=== PATIENT | female | born 1930 | race Caucasian/White ===

== ENCOUNTER 2016-07-01 23:00 | Inpatient (IN) | payer OTHER ==
[~2016-07-01] VITALS: Ht 167.6 cm; Wt 70.1 kg
[2016-07-02] VITALS (10 sets, daily range): BP systolic 99–160; BP diastolic 59–78; PULSE 60–66; TEMP 36.5–36.9; O2SAT 94–98; Ht 167.6 cm; Wt 70.1 kg
--- NOTE | 2016-07-02 00:28 | EMERGENCY ROOM VISIT NOTE ---
History Report prepared by Quanibelo: Dao Argueta Under the Supervision of: Dr. Indra Caputo D.O. First contact with patient: 00:21 Chief Complaint: BACK PAIN Stated Complaint: PAIN IN UPPER BACK WITH DEEP BREATHS History of Present Illness The patient is an 86 year old female who presents to the Emergency Room with complaints of persistent back pain since yesterday. The pain is localized to the right upper back, and is worsened when she takes a deep breath. She has not taken anything for pain. She denies fevers, cough, or chest pain. The patient denies any recent back injuries. She does have a history of blood clots s/p surgery many years ago. She is not on any blood thinners currently other than baby aspirin. The patient does not have any known drug allergies. She has a history of arthritis in her back. Source of History: patient Onset: yesterday Position: back (upper) Timing: other (persistent) Modifying Factors (Worsening): breathing Associated Symptoms: No chest pain, No cough, No fevers Review of Systems See HPI for pertinent positives and negatives. A total of ten systems were reviewed and were otherwise negative. Past Medical & Surgical Medical Problems: (1) Arthritis (2) H/O blood clots Family History Blood clots Diabetes mellitus FHx: heart disease Hypertension Social History Smoking Status: Never Smoker Housing Status: lives alone Occupation Status: retired Current/Historical Medications Scheduled Aspirin (Aspirin Ec), 81 MG PO DAILY Calcium Carbonate-Vitamin D W/ (Caltrate 600 Plus), 1 TAB PO DAILY Cholecalciferol (Vitamin D3), 1,000 UNITS PO DAILY Coenzyme Q10 (Ubidecarenone) (Co Q 10), 100 MG PO DAILY Evcwnpuvefh-Ldlcpvtqrzj-Xwx C- (Glucosamine Chondroitin), 1 CAP PO BID Metoprolol Succ (Toprol Xl) (Toprol-Xl), 25 MG PO DAILY Simvastatin (Zocor), 20 MG PO QPM Allergies Coded Allergies: No Known Allergies (Unverified , 08/26/13) Physical Exam Vital Signs Date Time Temp Pulse Resp B/P Pulse Ox O2 Delivery O2 Flow Rate FiO2 07/02/16 03:00 67 14 152/74 91 07/02/16 02:41 173/79 07/02/16 02:30 76 19 07/02/16 02:00 77 19 175/75 07/02/16 01:45 63 17 141/86 97 Room Air 07/02/16 01:45 94 Room Air 07/01/16 23:11 36.6 70 20 180/77 93 Room Air Physical Exam GENERAL: Awake, alert, well-appearing, in no distress HENT: Normocephalic, atraumatic. Oropharynx unremarkable. EYES: Normal conjunctiva. Sclera non-icteric. NECK: Supple. No nuchal rigidity. FROM. No JVD. RESPIRATORY: Clear to auscultation. CARDIAC: Regular rate, normal rhythm. Extremities warm and well perfused. Pulses equal. ABDOMEN: Soft, non-distended. No tenderness to palpation. No rebound or guarding. No masses. RECTAL: Deferred. MUSCULOSKELETAL: Chest examination reveals no tenderness. The back is symmetrical on inspection without obvious abnormality. There is no CVA tenderness to palpation. No joint edema. LOWER EXTREMITIES: Calves are equal size bilaterally and non-tender. No edema. No discoloration. NEURO: Normal sensorium. No sensory or motor deficits noted. SKIN: No rash or jaundice noted. Medical Decision & Procedures ER Provider Diagnostic Interpretation: X ray results as stated below per my interpretation. Other radiology results as stated below per my review and radiologist interpretation Chest One View Portable: Negative for infiltrate. CTA CHEST: There are acute right upper lobar segmental and subsegmental pulmonary emboli. Main pulmonary artery is normal in caliber. There is no evidence of right heart strain. Thoracic aorta is normal in caliber. There is cardiomegaly and coronary atherosclerosis without significant pericardial effusion. There is small sliding type hiatal hernia. There is no adenopathy by size criteria. Enlarged multinodular goiter is noted. There are few juxtapleural opacities in the right upper lobe which may represent small areas of pulmonary infarct. There is left basilar subsegmental atelectasis. There is mild generalized subpleural reticulations and fibrosis. There is no pleural effusion or pneumothorax. Visualized upper abdomen is unremarkable. No acute osseous findings. 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 Radioloigst: Tyshawn Wong MD. Laboratory Results 07/02/16 00:35 Red Blood Count 4.69, Mean Corpuscular Volume 94.0, Mean Corpuscular Hemoglobin 30.9, Mean Corpuscular Hemoglobin Concent 32.9, Mean Platelet Volume 11.4, Neutrophils (%) (Auto) 10.2, Lymphocytes (%) (Auto) 86.1, Monocytes (%) (Auto) 2.6, Eosinophils (%) (Auto) 0.6, Basophils (%) (Auto) 0.2, Neutrophils # (Auto) 5.65, Lymphocytes # (Auto) 47.51, Monocytes # (Auto) 1.45, Eosinophils # (Auto) 0.31, Basophils # (Auto) 0.09 07/02/16 00:35 Test 07/02/16 00:35 White Blood Count 55.16 K/uL (4.8-10.8) Red Blood Count 4.69 M/uL (4.2-5.4) Hemoglobin 14.5 g/dL (12.0-16.0) Hematocrit 44.1 % (37-47) Mean Corpuscular Volume 94.0 fL (80-100) Mean Corpuscular Hemoglobin 30.9 pg (25-34) Mean Corpuscular Hemoglobin Concent 32.9 g/dl (32-36) Platelet Count 159 K/uL (130-400) Mean Platelet Volume 11.4 fL (7.4-10.4) Neutrophils (%) (Auto) 10.2 % Lymphocytes (%) (Auto) 86.1 % Monocytes (%) (Auto) 2.6 % Eosinophils (%) (Auto) 0.6 % Basophils (%) (Auto) 0.2 % Neutrophils # (Auto) 5.65 K/uL (1.4-6.5) Lymphocytes # (Auto) 47.51 K/uL (1.2-3.4) Monocytes # (Auto) 1.45 K/uL (0.11-0.59) Eosinophils # (Auto) 0.31 K/uL (0-0.5) Basophils # (Auto) 0.09 K/uL (0-0.2) RDW Standard Deviation 47.5 fL (36.4-46.3) RDW Coefficient of Variation 14.0 % (11.5-14.5) Immature Granulocyte % (Auto) 0.3 % Immature Granulocyte # (Auto) 0.15 K/uL (0.00-0.02) Smudge Cells PRESENT Prothrombin Time 10.7 SECONDS (9.0-12.0) Prothromb Time International Ratio 1.0 (0.9-1.1) Anion Gap 7.0 mmol/L (3-11) Est Creatinine Clear Calc Drug Dose 39.5 ml/min Estimated GFR () 59.9 Estimated GFR (Non- 51.7 BUN/Creatinine Ratio 22.6 (10-20) Calcium Level 10.0 mg/dl (8.5-10.1) Total Bilirubin 0.5 mg/dl (0.2-1) Direct Bilirubin 0.1 mg/dl (0-0.2) Aspartate Amino Transf (AST/SGOT) 20 U/L (15-37) Alanine Aminotransferase (ALT/SGPT) 23 U/L (12-78) Alkaline Phosphatase 61 U/L (45-117) Total Protein 7.9 gm/dl (6.4-8.2) Albumin 4.2 gm/dl (3.4-5.0) Laboratory results reviewed by me Medications Administered Medications (Trade) Dose Ordered Sig/Lizeth Route Start Time Stop Time Status Last Admin Dose Admin Enoxaparin Sodium (Lovenox Inj) 100 mg STK-MED ONCE .ROUTE 07/02/16 02:32 07/02/16 02:33 DC 07/02/16 02:36 70 MG ECG Indication: back/shoulder pain Rate (beats per minute): 69 Rhythm: normal sinus Findings: RBBB, other (no obvoius ST segment elevation. Normal axis.) ED Course 0022: The patient was evaluated in room A3. A complete history and physical exam was performed. 0215: [facility] 02[facility]: Lovenox 100 mg SQ. 0245: Updated and reevaluated the patient. 0300: The patient will be evaluated by Dr. Tsang, [facility]. Medical Decision Differential diagnosis includes rib sprain, rib fracture, pneumonia, PE. Patient was found to have a pulmonary embolism the right upper lobe on CT. Patient is in no respiratory distress is not tachycardic or hypotensive at this time. I've discussed the evaluation of the patient patient's daughter at bedside at 2:45 AM. Patient will be started on Lovenox and admitted for further treatment pulmonary embolism Consults Time Called: [phone] Consulting Physician: Dr. Tsang, [facility]ist. Returned Call: [phone] The patient will be [facility] Impression Primary Impression: Pulmonary embolism Critical Care I have personally spent greater than 35 minutes of critical care time in the direct management of this patient. This includes bedside care, interpretation of diagnostic studies, and testing, discussion with consultants, patient, and family members, and other required patient management activities. This 35 minutes is in excess of all separately billable procedures. Scribe Attestation The scribe's documentation has been prepared under my direction and personally reviewed by me in its entirety. I confirm that the note above accurately reflects all work, treatment, procedures, and medical decision making performed by me. Departure Information Dispostion Being Evaluated By Hospitalist Referrals Jose Denise M.D. (PCP) Patient Instructions My [facility] Problem Qualifiers Primary Impression: Pulmonary embolism Pulmonary embolism type: other Chronicity: acute Acute cor pulmonale presence: without acute cor pulmonale Qualified Codes: I26.99 - Other pulmonary embolism without acute cor pulmonale
[2016-07-02] MEDS ORDERED: OPTIRAY 320 IV PRN (00:30)
[2016-07-02 01:08] LABS: HEMATOCRIT 44.1 % (37-47); MEAN CORPUSCULAR HEMOGLOBIN 30.9 pg (25-34); MEAN CORPUSCULAR HGB CONC 32.9 g/dl (32-36); MEAN PLATELET VOLUME 11.4 fL (7.4-10.4); PLATELET COUNT 159 K/uL (130-400); RED BLOOD COUNT 4.69 M/uL (4.2-5.4); WHITE BLOOD COUNT 55.16 K/uL (4.8-10.8)
[2016-07-02 01:13] LABS: BUN/CREATININE RATIO 22.6 (10-20)
[2016-07-02 01:25] LABS: BASO % 0.2 %; BASO ABS # 0.09 K/uL (0-0.2); COMPLETE YES; EOS % 0.6 %; IG% 0.3 %; LYMPH % 86.1 %; LYMPH ABS # 47.51 K/uL (1.2-3.4); MONO % 2.6 %; NEUT % 10.2 %; SMUDGE CELLS PRESENT
[2016-07-02] MEDS ORDERED: ENOXAPARIN 1 MG/KG SQ SCH ×2 (02:30→07:15)
[2016-07-02] MEDS ORDERED: ENOXAPARIN 100 MG/1ML SYR ONE (02:32)
[2016-07-02] MEDS ORDERED: GLUC1CAP35 PO (02:36)
[2016-07-02] MEDS ORDERED: ASPI81TA28 PO (02:37)
[2016-07-02] MEDS ORDERED: SIMV20TA2 PO (02:38)
[2016-07-02] MEDS ORDERED: CHOL1CAP57 PO (02:39)
[2016-07-02] MEDS ORDERED: METO25TA3 PO (02:40)
[2016-07-02] MEDS ORDERED: COEN1CAP17 PO (02:41)
[2016-07-02] MEDS ORDERED: CALCTAB7 PO (02:42)
[2016-07-02 03:03] LABS: PROTHROMBIN TIME (PATIENT) 10.7 SECONDS (9.0-12.0)
--- NOTE | 2016-07-02 05:56 | History and Physical ---
History & Physical Date & Time of Service: Jul 02, 2016 at 05:55 Chief Complaint: Pain In Upper Back With Deep Breaths Primary Care Physician: Jose Denise M.D. History of Present Illness Source: patient 86 y/o F Hx CLL, HTN, HPL, DVT/PE - presents with pleuritic R upper back pain x 2 days. She denies fevers, CP, palpitations or a productive cough. A CTA was obtained in the ER revealing R upper lobe pulmonary emboli. She has not exhibited hypoxia or tachycardia. 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 Family History Blood clots Diabetes mellitus FHx: heart disease Hypertension Several family members with DVT Social History Lives with family - maintains independence Smoking Status: Never Smoker Occupational Status: retired Allergies Coded Allergies: No Known Allergies (Unverified , 08/26/13) Home Medications Scheduled Aspirin (Aspirin Ec), 81 MG PO DAILY Calcium Carbonate-Vitamin D W/ (Caltrate 600 Plus), 1 TAB PO DAILY Cholecalciferol (Vitamin D3), 1,000 UNITS PO DAILY Coenzyme Q10 (Ubidecarenone) (Co Q 10), 100 MG PO DAILY Gxiklsrdxqk-Werlzfnnjur-Lex C- (Glucosamine Chondroitin), 1 CAP PO BID Metoprolol Succ (Toprol Xl) (Toprol-Xl), 25 MG PO DAILY Simvastatin (Zocor), 20 MG PO QPM Review of Systems Constitutional: No chills, No fever, No sweats Eyes: No worsening of vision ENT: No hearing loss, No nasal symptoms, No unusual epistaxis Respiratory: + problem reported (PLeuritic R upper back pain), No cough, No dyspnea at rest, No dyspnea on exertion, No shortness of breath, No sputum, No wheezing Cardiovascular: No PND, No chest pain, No orthopnea Abdomen: No nausea, No pain, No vomiting Musculoskeletal: No joint pain Genitourinary - Female: No dysuria, No urinary frequency, No urinary urgency Neurologic: No memory loss, No paralysis, No weakness Psychiatric: No depression symptoms Endocrine: No fatigue Hematologic / Lymphatic: No abnormal bleeding/bruising Integumentary: No rash Allergic / Immunologic: No environmental allergies Physical Exam Vital Signs Date Time Temp Pulse Resp B/P Pulse Ox O2 Delivery O2 Flow Rate FiO2 07/02/16 04:30 63 13 140/61 92 07/02/16 04:00 66 14 140/70 91 07/02/16 03:30 67 13 145/74 87 07/02/16 03:00 67 14 152/74 91 07/02/16 02:41 173/79 07/02/16 02:30 76 19 07/02/16 02:00 77 19 175/75 07/02/16 01:45 63 17 141/86 97 Room Air 07/02/16 01:45 94 Room Air 07/01/16 23:11 36.6 70 20 180/77 93 Room Air General Appearance: WD/WN, no apparent distress, + pertinent finding (Very pleasant elderly F - AAO x 3 - no distress) Head: normocephalic, atraumatic Eyes: normal inspection, EOMI ENT: normal ENT inspection, pharynx normal Neck: supple, no JVD Respiratory/Chest: chest non-tender, lungs clear, no accessory muscle use Cardiovascular: regular rate, rhythm, no edema, no gallop, no JVD, no murmur, normal peripheral pulses Abdomen/GI: normal bowel sounds, non tender, soft Back: normal inspection, no CVA tenderness, no muscle spasm, normal range of motion Extremities/Musculoskelatal: normal inspection, no calf tenderness, normal capillary refill, no pedal edema, normal range of motion Neurologic/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, no motor/sensory deficits, alert, normal mood/affect, normal reflexes, oriented x 3 Skin: normal color, warm/dry, no rash Diagnostics Laboratory Results Results Past 24 Hours Test 07/02/16 00:35 Range/Units White Blood Count 55.16 4.8-10.8 K/uL Red Blood Count 4.69 4.2-5.4 M/uL Hemoglobin 14.5 12.0-16.0 g/dL Hematocrit 44.1 37-47 % Mean Corpuscular Volume 94.0 80-100 fL Mean Corpuscular Hemoglobin 30.9 25-34 pg Mean Corpuscular Hemoglobin Concent 32.9 32-36 g/dl Platelet Count 159 130-400 K/uL Mean Platelet Volume 11.4 7.4-10.4 fL Neutrophils (%) (Auto) 10.2 % Lymphocytes (%) (Auto) 86.1 % Monocytes (%) (Auto) 2.6 % Eosinophils (%) (Auto) 0.6 % Basophils (%) (Auto) 0.2 % Neutrophils # (Auto) 5.65 1.4-6.5 K/uL Lymphocytes # (Auto) 47.51 1.2-3.4 K/uL Monocytes # (Auto) 1.45 0.11-0.59 K/uL Eosinophils # (Auto) 0.31 0-0.5 K/uL Basophils # (Auto) 0.09 0-0.2 K/uL RDW Standard Deviation 47.5 36.4-46.3 fL RDW Coefficient of Variation 14.0 11.5-14.5 % Immature Granulocyte % (Auto) 0.3 % Immature Granulocyte # (Auto) 0.15 0.00-0.02 K/uL Smudge Cells PRESENT Prothrombin Time 10.7 9.0-12.0 SECONDS Prothromb Time International Ratio 1.0 0.9-1.1 Sodium Level 144 136-145 mmol/L Potassium Level 4.0 3.5-5.1 mmol/L Chloride Level 104 98-107 mmol/L Carbon Dioxide Level 33 21-32 mmol/L Anion Gap 7.0 3-11 mmol/L Blood Urea Nitrogen 23 7-18 mg/dl Creatinine 1.00 0.60-1.20 mg/dl Est Creatinine Clear Calc Drug Dose 39.5 ml/min Estimated GFR () 59.9 Estimated GFR (Non- 51.7 BUN/Creatinine Ratio 22.6 10-20 Random Glucose 113 70-99 mg/dl Calcium Level 10.0 8.5-10.1 mg/dl Total Bilirubin 0.5 0.2-1 mg/dl Direct Bilirubin 0.1 0-0.2 mg/dl Aspartate Amino Transf (AST/SGOT) 20 15-37 U/L Alanine Aminotransferase (ALT/SGPT) 23 12-78 U/L Alkaline Phosphatase 61 45-117 U/L Total Protein 7.9 6.4-8.2 gm/dl Albumin 4.2 3.4-5.0 gm/dl Diagnostic Radiology CTA: There are acute right upper lobar segmental and subsegmental pulmonary emboli. Main pulmonary artery is normal in caliber. There is no evidence of right heart strain. Impression Assessment and Plan 86 y/o F Hx CLL, HTN, HPL, DVTs - presents with pleuritic R upper back pain. She denies fevers, CP, palpitations or a productive cough. A CTA was obtained in the ER revealing R upper lobe pulmonary emboli. 1) PE - the pt is not hypoxic or tachycardic. She does not have evidence of R heart strain. She is likely susceptible to emboli due to her underlying CA. She has been placed on Lovenox and may be a candidate for treatment with an oral anticoagulant if this can be arranged prior to Monday. 2) CLL - WBC is slightly above baseline possibly due to stress - F/U in outpt setting. 3) HTN - cont Metoprolol 4) HPL - cont Zocor Full code - full dose Lovenox Total time for this admit including review of labs, meds, records, EKG, imaging - discussion with Pt and ER attending - 38 min Level of Care Telemetry Resuscitation Status FULL RESUSCITATION VTE Prophylaxis Given or contraindicated: Enoxaparin (Lovenox)SQ
[2016-07-02] MEDS ORDERED: ALUMINUM/MAGNESIUM/SIMETH (MAALOX MAX) 30 ML UDC PO PRN (06:00)
[2016-07-02] MEDS ORDERED: ACETAMINOPHEN 325 MG TAB PO PRN (06:00)
[2016-07-02] MEDS ORDERED: ONDANSETRON INJ 2 MG/ML 2 ML VIAL IV PRN (06:00)
[2016-07-02] MEDS ORDERED: MAGNESIUM HYDROXIDE SUSP 30 ML UDC PO PRN (06:00)
[2016-07-02] MEDS ORDERED: POLYETHYLENE (MIRALAX) 17 GM PACK PO PRN (06:00)
--- NOTE | 2016-07-02 07:38 | DIAGNOSTIC IMAGING REPORT ---
CHEST CTA for PULMONARY ARTERIES CT DOSE: 208.76 mGy.cm HISTORY: Short of breath. TECHNIQUE: Multiaxial CT images of the chest were performed following the intravenous administration of contrast to evaluate the pulmonary arteries. Maximal intensity projection images were also obtained. COMPARISON STUDY: None. FINDINGS: Multinodular thyroid goiter. No evidence for an aortic dissection. The heart is mildly enlarged. No pleural or pericardial effusions. No mediastinal or hilar lymphadenopathy. The visualized liver and spleen are unremarkable. Small hiatus hernia. Right upper lobe pulmonary emboli. No fractures within the visualized osseous structures. Benign appearing sclerotic lesion within the left humeral head. No pneumothorax. The central airways are patent. Mild interstitial thickening at the lung bases. A few small peripheral groundglass densities within the right lung apex. These favor small pulmonary infarcts. IMPRESSION: 1. Right upper lobe pulmonary emboli with a few small right apical pulmonary infarcts. 2. Multinodular goiter. 3. The heart is mildly enlarged. 4. Small hiatus hernia. 5. Multinodular thyroid goiter. Electronically signed by: Geovanni Ojeda M.D. 07/02/2016 7:37 AM Dictated Date/Time: 07/02/2016 7:33 AM
--- NOTE | 2016-07-02 08:45 | DIAGNOSTIC IMAGING REPORT ---
CHEST ONE VIEW PORTABLE HISTORY: Atypical CHEST PAIN COMPARISON: None. FINDINGS: Slight prominence of interstitial markings which is likely chronic. The heart is mildly enlarged. Low lung volumes. No pleural effusions. No pneumothorax. Sclerotic density within the proximal left humerus favors a benign cartilaginous lesion. IMPRESSION: Low lung volumes with mild chronic interstitial thickening and mild cardiomegaly. Electronically signed by: Geovanni Ojeda M.D. 07/02/2016 8:43 AM Dictated Date/Time: 07/02/2016 8:43 AM
[2016-07-02] MEDS: METOPROLOL SUCC 25MG EXT REL TAB PO SCH (08:51)
[2016-07-02] MEDS: CHOLECALCIFEROL 1000 INTER.UNIT TAB PO SCH (08:51)
[2016-07-02] MEDS: CALCIUM 600MG + VIT D 400 IU TAB PO SCH (08:51)
[2016-07-02] MEDS: ASPIRIN 81 MG ECTAB PO SCH (08:51)
--- NOTE | 2016-07-02 16:13 | Progress Note ---
Subjective Date of Service: Jul 02, 2016. Subjective Pt evaluation today including: conversation w/ patient, conversation w/ family , physical exam, chart review, lab review, review of studies, review of inpatient medication list He denied to chair, pleasant, no complaint Problem List Medical Problems: (1) Pulmonary embolism Status: Acute Review of Systems Constitutional: No chills, No fatigue, No fever, No problem reported, No sweats , No weakness, No weight loss Eyes: No diplopia, No discharge, No eye pain, No redness, No worsening of vision ENT: No dental problems, No hearing loss, No nasal symptoms, No sore throat, No tinnitus, No trouble swallowing, No unusual epistaxis Respiratory: No cough, No dyspnea at rest, No dyspnea on exertion, No hemoptysis, No shortness of breath, No sputum, No wheezing Cardiac: No PND, No chest pain, No claudication, No edema, No orthopnea, No palpitations Abdomen: No constipation, No diarrhea, No nausea, No pain, No vomiting Musculoskeletal: No calf pain, No joint pain, No muscle pain, No swelling Female : No abnormal vaginal bleeding, No dysuria, No hematuria, No incontinence, No urinary frequency, No vaginal discharge Neurologic: No balance problems, No memory loss, No numbness/tingling, No paralysis, No vertigo, No weakness Psychiatric: No anhedonism, No anxiety, No depression symptoms, No insomnia, No substance abuse Heme: No abnormal bleeding/bruising, No clotting problems, No night sweats, No swollen lymph nodes Endo: No excessive thirst, No excessive urination, No fatigue Skin: No bleeding, No color change, No itch, No new/changing skin lesions, No rash Objective Vital Signs Date Time Temp Pulse Resp B/P Pulse Ox O2 Delivery O2 Flow Rate FiO2 07/02/16 12:00 94 Room Air 07/02/16 11:22 36.5 63 16 155/60 98 Room Air 07/02/16 08:00 94 Room Air 07/02/16 07:46 36.7 61 16 148/72 94 Room Air 07/02/16 06:45 36.9 65 18 160/67 95 Room Air 07/02/16 06:21 63 18 156/70 95 07/02/16 04:30 63 13 140/61 92 07/02/16 04:00 66 14 140/70 91 07/02/16 03:30 67 13 145/74 87 07/02/16 03:00 67 14 152/74 91 07/02/16 02:41 173/79 07/02/16 02:30 76 19 07/02/16 02:00 77 19 175/75 07/02/16 01:45 63 17 141/86 97 Room Air 07/02/16 01:45 94 Room Air 07/01/16 23:11 36.6 70 20 180/77 93 Room Air Physical Exam General Appearance: WD/WN, no apparent distress Eyes: normal inspection, PERRL, EOMI, sclerae normal ENT: normal ENT inspection, hearing grossly normal, pharynx normal Neck: supple, no adenopathy, thyroid normal, no JVD, no carotid bruits, trachea midline Respiratory/Chest: chest non-tender, lungs clear, normal breath sounds, no respiratory distress, no accessory muscle use, + decreased breath sounds Cardiovascular: regular rate, rhythm, no edema, no gallop, no JVD, no murmur Abdomen: normal bowel sounds, non tender, soft, no organomegaly, no pulsatile mass Extremities: normal range of motion, non-tender, normal inspection, no pedal edema, no calf tenderness, normal capillary refill, pelvis stable Neurologic/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, no motor/sensory deficits, alert, normal mood/affect, oriented x 3 Skin: normal color, warm/dry, no rash Lymphatic: no adenopathy Laboratory Results Last 24 Hours Test 07/02/16 00:35 White Blood Count 55.16 K/uL Red Blood Count 4.69 M/uL Hemoglobin 14.5 g/dL Hematocrit 44.1 % Mean Corpuscular Volume 94.0 fL Mean Corpuscular Hemoglobin 30.9 pg Mean Corpuscular Hemoglobin Concent 32.9 g/dl Platelet Count 159 K/uL Mean Platelet Volume 11.4 fL Neutrophils (%) (Auto) 10.2 % Lymphocytes (%) (Auto) 86.1 % Monocytes (%) (Auto) 2.6 % Eosinophils (%) (Auto) 0.6 % Basophils (%) (Auto) 0.2 % Neutrophils # (Auto) 5.65 K/uL Lymphocytes # (Auto) 47.51 K/uL Monocytes # (Auto) 1.45 K/uL Eosinophils # (Auto) 0.31 K/uL Basophils # (Auto) 0.09 K/uL RDW Standard Deviation 47.5 fL RDW Coefficient of Variation 14.0 % Immature Granulocyte % (Auto) 0.3 % Immature Granulocyte # (Auto) 0.15 K/uL Smudge Cells PRESENT Prothrombin Time 10.7 SECONDS Prothromb Time International Ratio 1.0 Sodium Level 144 mmol/L Potassium Level 4.0 mmol/L Chloride Level 104 mmol/L Carbon Dioxide Level 33 mmol/L Anion Gap 7.0 mmol/L Blood Urea Nitrogen 23 mg/dl Creatinine 1.00 mg/dl Est Creatinine Clear Calc Drug Dose 39.5 ml/min Estimated GFR () 59.9 Estimated GFR (Non- 51.7 BUN/Creatinine Ratio 22.6 Random Glucose 113 mg/dl Calcium Level 10.0 mg/dl Total Bilirubin 0.5 mg/dl Direct Bilirubin 0.1 mg/dl Aspartate Amino Transf (AST/SGOT) 20 U/L Alanine Aminotransferase (ALT/SGPT) 23 U/L Alkaline Phosphatase 61 U/L Total Protein 7.9 gm/dl Albumin 4.2 gm/dl Assessment and Plan 86 y/o F Hx CLL, HTN, HPL, DVTs admitted because of with pleuritic R upper back pain is found has acute PE. A CTA was obtained in the ER revealing R upper lobe pulmonary emboli. Acute PE likely susceptible to emboli due to her underlying CA. Continue on Lovenox and may be a candidate for treatment with an oral anticoagulant if this can be arranged prior to Monday. Will consult deicer inspector electric because patient have underlined leukemia and 1 to find on the best options of anticoagulation hx of CLL - WBC is slightly above baseline possibly due to stress - F/U in outpt setting. HTN - cont Metoprolol HPL - cont Zocor Full code - full dose Lovenox Discussed with patient and family about care plan answer all questions
[2016-07-02] MEDS: ENOXAPARIN 80 MG/0.8 ML SYR SQ SCH (16:25)
[2016-07-02] MEDS: SIMVASTATIN 20 MG TAB PO SCH (21:28)
[2016-07-03] VITALS (12 sets, daily range): BP systolic 110–151; BP diastolic 62–74; PULSE 59–74; TEMP 36.5–37; O2SAT 93–98
[2016-07-03] MEDS: ENOXAPARIN 80 MG/0.8 ML SYR SQ SCH ×2 (06:12→17:37)
[2016-07-03] MEDS: METOPROLOL SUCC 25MG EXT REL TAB PO SCH (09:39)
[2016-07-03] MEDS: ASPIRIN 81 MG ECTAB PO SCH (09:40)
[2016-07-03] MEDS: CALCIUM 600MG + VIT D 400 IU TAB PO SCH (09:41)
[2016-07-03] MEDS: CHOLECALCIFEROL 1000 INTER.UNIT TAB PO SCH (09:41)
--- NOTE | 2016-07-03 11:10 | Hospitalist Progress Note ---
Hospitalist Progress Note Date of Service Jul 03, 2016. Subjective Pt evaluation today including: conversation w/ patient, physical exam, chart review, lab review, review of studies, review of inpatient medication list Patient seen and evaluated. No acute events overnight. Patient is currently on therapeutic Lovenox. Awaiting afternoon babysitter recommendations with hopeful conversion for oral anticoagulation. Follows with Dr. Ivy as her oncologist. 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 She states that she did have clotting issues approximately 10 years ago but cannot recall is utilizing anticoagulation. Additional Comments: REVIEW OF SYSTEMS: General/Constitutional: Denies fever/chills, fatigue, weakness ENT: Denies visual changes, nasal drainage, hearing loss, sore throat, trouble swallowing Cardiovascular: Denies chest pain, palpitations, edema Respiratory: +intermittent coughl Denies sputum, SOB, wheezing, orthopnea GI: Denies nausea, vomiting, abdominal pain, constipation, diarrhea, melena/ hematochezia : Denies dysuria, frequency, hematuria Musculoskeletal: Denies joint/muscle aches, weakness, swelling Neurologic: Denies dizziness/lightheadedness, numbness/tingling, weakness Psychiatric: Deferred Endocrine: Deferred Hematologic/Lymphatic: H/O previous blood clot after surgery Skin: Denies rash, itch, new skin changes, easy bruising Allergy/Immunologic: Deferred Medications Current Inpatient Medications Medications (Trade) Dose Ordered Sig/Lizeth Route Start Time Stop Time Status Last Admin Dose Admin Ioversol (Optiray 320) 125 ml UD PRN IV 07/02/16 00:30 07/06/16 00:29 Aspirin (Ecotrin Tab) 81 mg DAILY PO 07/02/16 09:00 08/01/16 08:59 07/03/16 09:40 81 MG Calcium/Vitamin D (Caltrate Plus Tab) 1 tab DAILY PO 07/02/16 09:00 08/01/16 08:59 07/03/16 09:41 1 TAB Metoprolol Succinate (Toprol Xl Tab) 25 mg DAILY PO 07/02/16 09:00 08/01/16 08:59 07/03/16 09:39 25 MG Simvastatin (Zocor Tab) 20 mg QPM PO 07/02/16 21:00 08/01/16 20:59 07/02/16 21:28 20 MG Cholecalciferol (Vitamin D Tab) 1,000 inter.unit DAILY PO 07/02/16 09:00 08/01/16 08:59 07/03/16 09:41 1,000 INTER.UNIT Acetaminophen (Tylenol Tab) 650 mg Q4H PRN PO 07/02/16 06:00 08/01/16 05:59 Al Hydrox/Mg Hydrox/Simethicone (Maalox Max Susp) 15 ml Q4H PRN PO 07/02/16 06:00 08/01/16 05:59 Magnesium Hydroxide (Milk Of Magnesia Susp) 30 ml Q12H PRN PO 07/02/16 06:00 08/01/16 05:59 Ondansetron HCl (Zofran Inj) 4 mg Q6H PRN IV 07/02/16 06:00 08/01/16 05:59 Polyethylene (Miralax Powder Packet) 17 gm DAILY PRN PO 07/02/16 06:00 08/01/16 05:59 Enoxaparin Sodium (Lovenox Inj) 70 mg Q12@0600,1800 SQ 07/02/16 16:00 08/01/16 15:59 07/03/16 06:12 70 MG Objective Vital Signs Date Time Temp Pulse Resp B/P Pulse Ox O2 Delivery O2 Flow Rate FiO2 07/03/16 07:37 36.8 65 16 110/68 98 Room Air 07/03/16 04:00 96 Room Air 07/03/16 03:59 36.6 74 18 151/74 96 Room Air 07/03/16 00:01 97 Room Air 07/02/16 23:16 36.7 66 18 99/59 97 Room Air 07/02/16 20:00 97 Room Air 07/02/16 20:00 97 Room Air 07/02/16 18:59 36.8 60 18 121/71 96 Room Air 07/02/16 16:00 94 Room Air 07/02/16 15:06 36.5 63 18 140/78 94 Room Air 07/02/16 12:00 94 Room Air 07/02/16 11:22 36.5 63 16 155/60 98 Room Air Physical Exam Notes: PHYSICAL EXAM:: General Appearance: WDWN in NAD who is A&O x 3 HEENT: Head is normocephalic/atraumatic; EOMI; PERRLA; Hearing grossly intact; Mucous membranes moist; Pharynx negative for exudate/lesions Neck: Supple; Trachea midline; Neg JVD; Neg lymphadenopathy Heart: RRR with no M/G/R Lungs: CTA in all lung ponce bilaterally; Respirations unlabored; Neg accessory muscle use Abdomen: Soft, non-tender, non-distended; Positive BS x 4 quadrants; Neg organomegaly Extremities: Capillary refill < 2 seconds; Neg cyanosis or edema Neurological: Speech clear; Gross motor/sensory function intact; Neg focal neurologic deficits Psychiatric: Appropriate mood/affect Skin: Normal Color; Warm/Dry; Neg rashes, ecchymosis, lacerations/ulcerations Assessment and Plan 86 y/o F Hx CLL, HTN, HPL, DVTs admitted because of with pleuritic R upper back pain is found has acute PE - R Upper Lobe PE Acute Pulmonary Embolism - Likely 2/2 CLL: - Lovenox 70 mg SC daily - Venous U/S B/L lower extremity - R/O existing DVT - Follows with Dr. Ivy in [place] for CLL without active treatment - Consult hematology - appreciate recommendations -- Patient would like oral anticoagulant - patient independent and denies frequent falls - consideration for NOAC? HTN: - Metoprolol Succ 25 mg daily HDL: - Simvastatin 20 mg daily DVT Prophylaxis: Therapeutic Lovenox Code Status: FULL RESUSCITATION Disposition: D/C with anticoagulation - if NOAC will need insurance checked to see affordability -- If injection - HHS Continued [facility] stay due to: other (Anticoagulation as Outpatient) Discharge planning: home
--- NOTE | 2016-07-03 11:55 | Oncology Consultation ---
Oncology/Heme Consultation Date of Consultation: Jul 03, 2016. Attending Physician: Narendra Le MD, PhD Reason for Consultation: CLL Pulmonary embolism History of Present Illness Ms. 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 She is asymptomatic and managed with expectant observation. She presented yesterday with chest pain and was found to have a RUL PE. She is currently on Lovenox 1 mg/kg BID and would prefer an oral option. I was consulted to weigh in on this issue. She feels well and denies fevers, chills, night sweats, adenopathy, hemoptysis, fatigue, or anorexia. Past Medical/Surgical History Medical Problems: (1) Pulmonary embolism Status: Acute Family History Blood clots Diabetes mellitus FHx: heart disease Hypertension Social History Smoking Status: Never Smoker Housing Status: lives alone Occupation Status: retired Allergies Coded Allergies: No Known Allergies (Unverified , 08/26/13) Home Medications Scheduled Aspirin (Aspirin Ec), 81 MG PO DAILY Calcium Carbonate-Vitamin D W/ (Caltrate 600 Plus), 1 TAB PO DAILY Cholecalciferol (Vitamin D3), 1,000 UNITS PO DAILY Coenzyme Q10 (Ubidecarenone) (Co Q 10), 100 MG PO DAILY Ugrzqwrrbor-Bopddhihjyw-Fen C- (Glucosamine Chondroitin), 1 CAP PO BID Metoprolol Succ (Toprol Xl) (Toprol-Xl), 25 MG PO DAILY Simvastatin (Zocor), 20 MG PO QPM Current Inpatient Medications Current Inpatient Medications Medications (Trade) Dose Ordered Sig/Lizeth Route Start Time Stop Time Status Last Admin Dose Admin Ioversol (Optiray 320) 125 ml UD PRN IV 07/02/16 00:30 07/06/16 00:29 Aspirin (Ecotrin Tab) 81 mg DAILY PO 07/02/16 09:00 08/01/16 08:59 07/03/16 09:40 81 MG Calcium/Vitamin D (Caltrate Plus Tab) 1 tab DAILY PO 07/02/16 09:00 08/01/16 08:59 07/03/16 09:41 1 TAB Metoprolol Succinate (Toprol Xl Tab) 25 mg DAILY PO 07/02/16 09:00 08/01/16 08:59 07/03/16 09:39 25 MG Simvastatin (Zocor Tab) 20 mg QPM PO 07/02/16 21:00 08/01/16 20:59 07/02/16 21:28 20 MG Cholecalciferol (Vitamin D Tab) 1,000 inter.unit DAILY PO 07/02/16 09:00 08/01/16 08:59 07/03/16 09:41 1,000 INTER.UNIT Acetaminophen (Tylenol Tab) 650 mg Q4H PRN PO 07/02/16 06:00 08/01/16 05:59 Al Hydrox/Mg Hydrox/Simethicone (Maalox Max Susp) 15 ml Q4H PRN PO 07/02/16 06:00 08/01/16 05:59 Magnesium Hydroxide (Milk Of Magnesia Susp) 30 ml Q12H PRN PO 07/02/16 06:00 08/01/16 05:59 Ondansetron HCl (Zofran Inj) 4 mg Q6H PRN IV 07/02/16 06:00 08/01/16 05:59 Polyethylene (Miralax Powder Packet) 17 gm DAILY PRN PO 07/02/16 06:00 08/01/16 05:59 Enoxaparin Sodium (Lovenox Inj) 70 mg Q12@0600,1800 SQ 07/02/16 16:00 08/01/16 15:59 07/03/16 06:12 70 MG Review of Systems Constitutional: No chills, No fatigue, No fever ENT: No unusual epistaxis Respiratory: No cough, No hemoptysis Cardiovascular: + chest pain, No edema Abdomen: No GI bleeding, No pain Musculoskeletal: No joint pain, No muscle pain Hematologic / Lymphatic: No abnormal bleeding/bruising, No night sweats, No swollen lymph nodes Physical Exam Date Time Temp Pulse Resp B/P Pulse Ox O2 Delivery O2 Flow Rate FiO2 07/03/16 11:29 36.5 65 16 120/64 93 Room Air 07/03/16 07:37 36.8 65 16 110/68 98 Room Air 07/03/16 04:00 96 Room Air 07/03/16 03:59 36.6 74 18 151/74 96 Room Air 07/03/16 00:01 97 Room Air 07/02/16 23:16 36.7 66 18 99/59 97 Room Air 07/02/16 20:00 97 Room Air 07/02/16 20:00 97 Room Air 07/02/16 18:59 36.8 60 18 121/71 96 Room Air 07/02/16 16:00 94 Room Air 07/02/16 15:06 36.5 63 18 140/78 94 Room Air 07/02/16 12:00 94 Room Air General Appearance: WD/WN, no apparent distress Respiratory/Chest: lungs clear, no respiratory distress Cardiovascular: regular rate, rhythm, no murmur Abdomen/GI: non tender, soft Extremities/Musculoskelatal: no pedal edema, non-tender Neurologic/Psych: alert, oriented x 3 Skin: no rash Lymphatic: no adenopathy Assessment & Plan Ms. Varma is an 86 year old woman with Shook stage 0 CLL. She presents with an acute RUL PE. She is currently being managed with Lovenox, but would like to consider an oral agent instead. We have evidence that, in patients with active malignancy, Lovenox is superior to Coumadin in preventing recurrent VTE. A number of studies have demonstrated that, in a variety of other contexts, the DOACs (Rivaroxiban or Apixiban) are superior to Coumadin as well. However, the DOACs are poorly studied in cancer patients. Systematic reviews of smaller studies comparing DOACs to Coumadin show that they are likely of comparable efficacy, but the individual studies are small and the level of evidence is poor. In addition, no study to date has compared DOACs to Lovenox, which we know is superior to Coumadin in this setting. As a result, I would recommend Lovenox, provided she can tolerate it. If she tries it and cannot use it for whatever reason, she could discuss options for oral anticoagulants with her Accounting Manager Cpa in [place]. Given that this is her second VTE and was provoked by an irreversible risk factor (her CLL), I would advocate indefinite anticoagulation (i.e. until she has a compelling contraindication to AC). She should follow with her primary Accounting Manager Cpa shortly after discharge, to make sure he is aware of this turn of events.
[2016-07-03] MEDS ORDERED: NURSING VERBAL MED ORDER ONE (13:45)
[2016-07-03] MEDS ORDERED: LOVENOX TEACHING KIT SCH (14:15)
[2016-07-03] MEDS: SIMVASTATIN 20 MG TAB PO SCH (21:01)
--- NOTE | 2016-07-03 21:03 | DIAGNOSTIC IMAGING REPORT ---
BILATERAL LOWER EXTREMITY VENOUS DOPPLER CLINICAL HISTORY: Pulmonary emboli. COMPARISON STUDY: No previous studies for comparison. TECHNIQUE: Sonography of the deep venous system of the bilateral lower extremities was performed. Compression and augmentation were evaluated. FINDINGS: The bilateral common femoral, superficial femoral and popliteal veins were compressible. Augmentation was normal. Flow was shown within the deep calf vessels. IMPRESSION: No evidence of deep venous thrombus within the bilateral lower extremities. Electronically signed by: Parker Cano M.D. 07/03/2016 9:01 PM Dictated Date/Time: 07/03/2016 9:01 PM
[2016-07-04] VITALS (7 sets, daily range): BP systolic 113–148; BP diastolic 72–75; PULSE 56–72; TEMP 36.4–37.1; O2SAT 98
[2016-07-04] MEDS: ENOXAPARIN 80 MG/0.8 ML SYR SQ SCH (05:53)
[2016-07-04 06:01] LABS: HEMATOCRIT 40.2 % (37-47); MEAN CELL VOLUME 92.8 fL (80-100); MEAN CORPUSCULAR HEMOGLOBIN 30.3 pg (25-34); MEAN CORPUSCULAR HGB CONC 32.6 g/dl (32-36); MEAN PLATELET VOLUME 11.1 fL (7.4-10.4); PLATELET COUNT 138 K/uL (130-400); RED BLOOD COUNT 4.33 M/uL (4.2-5.4); WHITE BLOOD COUNT 39.77 K/uL (4.8-10.8)
[2016-07-04 06:32] LABS: BUN/CREATININE RATIO 24.8 (10-20); CALCIUM 9.3 mg/dl (8.5-10.1); CREATININE 0.9 mg/dl (0.60-1.20); MAGNESIUM 2.6 mg/dl (1.8-2.4); POTASSIUM 4.5 mmol/L (3.5-5.1)
[2016-07-04] MEDS: ASPIRIN 81 MG ECTAB PO SCH (08:04)
[2016-07-04] MEDS: CHOLECALCIFEROL 1000 INTER.UNIT TAB PO SCH (08:04)
[2016-07-04] MEDS: CALCIUM 600MG + VIT D 400 IU TAB PO SCH (08:04)
[2016-07-04] MEDS: METOPROLOL SUCC 25MG EXT REL TAB PO SCH (08:04)
--- NOTE | 2016-07-04 10:45 | Hematology/Oncology Prog Note ---
Hematology/Onc Progress Note Date of Service July 04, 2016. Diagnoses PE history of CLL Medications Medications Administered Medications (Trade) Dose Ordered Sig/Lizeth Route Start Time Stop Time Status Last Admin Dose Admin Enoxaparin Sodium (Lovenox Inj) 100 mg STK-MED ONCE .ROUTE 07/02/16 02:32 07/02/16 02:33 DC 07/02/16 02:36 70 MG Aspirin (Ecotrin Tab) 81 mg DAILY PO 07/02/16 09:00 08/01/16 08:59 07/04/16 08:04 81 MG Calcium/Vitamin D (Caltrate Plus Tab) 1 tab DAILY PO 07/02/16 09:00 08/01/16 08:59 07/04/16 08:04 1 TAB Metoprolol Succinate (Toprol Xl Tab) 25 mg DAILY PO 07/02/16 09:00 08/01/16 08:59 07/04/16 08:04 25 MG Simvastatin (Zocor Tab) 20 mg QPM PO 07/02/16 21:00 08/01/16 20:59 07/03/16 21:01 20 MG Cholecalciferol (Vitamin D Tab) 1,000 inter.unit DAILY PO 07/02/16 09:00 08/01/16 08:59 07/04/16 08:04 1,000 INTER.UNIT Enoxaparin Sodium (Lovenox Inj) 70 mg Q12@0600,1800 SQ 07/02/16 16:00 08/01/16 15:59 07/04/16 05:53 70 MG Miscellaneous (Lovenox Teaching Kit) 1 ea 1415 N/A 07/03/16 14:15 07/03/16 14:16 DC 07/03/16 14:15 1 EA Subjective She seems to be doing well. He really has no new complaints. Denies pain or shortness of breath Review of Systems: Constitutional: Negative for night sweats, or fever Eyes: Negative for event change of vision ENT: Negative for epistaxis, nasal discharge, sore throat, or deafness Cardiovascular: Negative for chest pain, palpitations, dizziness, diaphoresis Respiratory: Negative for new shortness of breath,hemoptysis, or purulent cough Gastrointestinal: Negative for diarrhea, hematemesis, melena, nausea, vomiting , or dyspepsia Integumentary (skin): Negative for rash or jaundice discoloration Genitourinary: Negative for urinary frequency, hematuria, or dysuria Neurological: Negative for weakness, seizure activity, headache, or dizziness Lymphatic/Hematologic: Negative for petechiae, bleeding or new adenopathy Musculoskeletal: Negative for new joint or back pain Allergic/Immunologic: Negative for unusual rash or pruritis. Vital Signs Vital Signs Past 12 Hours Date Time Temp Pulse Resp B/P Pulse Ox O2 Delivery O2 Flow Rate FiO2 07/04/16 08:05 72 07/04/16 08:00 Room Air 07/04/16 07:21 36.5 57 20 148/73 98 Room Air 07/04/16 04:00 98 Room Air 07/04/16 03:55 36.4 56 16 148/75 98 Room Air 07/04/16 00:01 98 Room Air 07/03/16 23:19 36.6 59 18 122/62 98 Room Air Physical Exam Constitutional: vitals are stable. Eyes: Eyes are MAVERICK EOMI without conjuctival erythema or icterus. ENT: External examination was negative for masses. Neck: Negative for masses or palpable thyromegaly Respiratory: Lung sounds were generally clear bilaterally Cardiovascular: Heart was RRR without significant murmur, gallops aoe rubs Gastrointestinal: No palpable hepatic or splenomegaly. The abdomen was soft with normal bowel sounds. Musculoskeletal System: The musculoskeletal system seemed concordant with age. Skin: The skin was negative for jaundice. Neurologic exam: The exam was negative for any focal findings. Deep tendon reflexes were equal and symmetrical. Psychiatric exam: Was essentially negative with normal mood and effect. Breast exam: Not done Extremities: Negative for edema Laboratory Last 24 Hours Test 07/04/16 05:40 White Blood Count 39.77 K/uL Red Blood Count 4.33 M/uL Hemoglobin 13.1 g/dL Hematocrit 40.2 % Mean Corpuscular Volume 92.8 fL Mean Corpuscular Hemoglobin 30.3 pg Mean Corpuscular Hemoglobin Concent 32.6 g/dl RDW Standard Deviation 47.1 fL RDW Coefficient of Variation 13.8 % Platelet Count 138 K/uL Mean Platelet Volume 11.1 fL Sodium Level 145 mmol/L Potassium Level 4.5 mmol/L Chloride Level 108 mmol/L Carbon Dioxide Level 32 mmol/L Anion Gap 5.0 mmol/L Blood Urea Nitrogen 22 mg/dl Creatinine 0.90 mg/dl Est Creatinine Clear Calc Drug Dose 43.5 ml/min Estimated GFR () 68.1 Estimated GFR (Non- 58.7 BUN/Creatinine Ratio 24.8 Random Glucose 90 mg/dl Calcium Level 9.3 mg/dl Magnesium Level 2.6 mg/dl Assessment & Plan CLL stable. She seems to be doing well on Lovenox. 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 Ivy in [place]. We will sign off for now. Please reconsult if necessary.
[2016-07-04] MEDS ORDERED: LVNIS80 SQ (11:11)
--- NOTE | 2016-07-04 11:22 | Discharge Instructions ---
Discharge Instructions Date of Service July 04, 2016. Admission Reason for Admission: Pulmonary Embolism Discharge Discharge Diagnosis / Problem: (1) Pulmonary embolism VTE Date & Time Date of VTE Diagnosis: Jul 02, 2016 Time of VTE Diagnosis: 00:27 Discharge Goals Goal(s): Decrease discomfort, Improve function, Increase independence Activity Recommendations Activity Limitations: as noted below Lifting Limitations: gradually increase as tolerated Exercise/Sports Limitations: gradually increase as tolerated Shower/Bathe: no limitations . Instructions / Follow-Up Instructions / Follow-Up Acute Pulmonary Embolism (Blood Clot in Lung) - You will be continued on Lovenox 100 mg subcutaneously (injected in the fat tissue on the belly) only ONCE DAILY -- This is different then the dose we used at the hospital - this way you only need to do one injection in a day and still gives you the amount of medicine you need - Monitor the injection sites for redness, pain, drainage, warmth which can be signs of infection - Follow-Up with Dr. Ivy - case management is awaiting call back for appointment. They will call you at home when an appointment is established -- We will defer continuing anticoagulation to Dr. Ivy as he is more familiar with your case and can monitor - Follow-Up with your family doctor in 7-10 days as well. Medication Instructions: Your condition is typically treated with an anticoagulant. Anticoagulants will thin your blood to help prevent new clots. * You should take her medication exactly as directed. * Never skip a dose. * Never take a double dose. If you miss a dose, take it as soon as you remember. Call your Primary Care doctor if you experience any of the following: * Swelling or Pain in your leg * Sudden, continuous pain deep in a muscle * Pain that worsens when you are active or when you stand still for a long time * Chest Pain * Sudden Shortness of Breath * Rapid or pounding heart beat * Fainting * Dizziness * Cough with blood or bloody sputum * Sweating more than normal * Bruises * Heavy or uncontrolled bleeding * Blood in your urine, stool or vomit * Black or tarry stools Caring for Your Self at Home: * Avoid sitting, standing or lying down for long periods without moving your legs and feet * When traveling by car, stop to get out and move around at least once every 3 hours * On long airplane, train or bus rides, get up and move around when possible * If you can't get up, wiggle your toes and tighten your calves to keep your blood moving Current Hospital Diet Patient's current hospital diet: AHA Diet (Heart Healthy) Discharge Diet Recommended Diet: AHA Diet (Heart Healthy) Pending Studies Studies pending at discharge: no Medical Emergencies . Who to Call and When: Medical Emergencies: If at any time you feel your situation is an emergency, please call 911 immediately. . Non-Emergent Contact Non-Emergency issues call your: Primary Care Provider Call Non-Emergent contact if: you have a fever, your pain is concerning you, you have any medication questions . . "Provider Documentation" section prepared by Ariadna Johnson. . VTE Core Measure Inpt VTE Proph given/why not?: Enoxaparin (Lovenox)SQ
[2016-07-04] MEDS ORDERED: ENOX100I SC (11:32)
--- NOTE | 2016-07-04 14:05 | Discharge Summary ---
Discharge Summary Date of Service July 04, 2016. Discharge Summary Admission Date: Jul 02, 2016 at 06:00 Discharge Date: July 04, 2016 Discharge Disposition: Home Principal Diagnosis: Pulmonary Embolism Problems/Secondary Diagnoses: 1. CLL 2. HDL 3. DVT (10 years ago) Procedures: 1. CHEST CTA for PULMONARY ARTERIES FINDINGS: Multinodular thyroid goiter. No evidence for an aortic dissection. The heart is mildly enlarged. No pleural or pericardial effusions. No mediastinal or hilar lymphadenopathy. The visualized liver and spleen are unremarkable. Small hiatus hernia. Right upper lobe pulmonary emboli. No fractures within the visualized osseous structures. Benign appearing sclerotic lesion within the left humeral head. No pneumothorax. The central airways are patent. Mild interstitial thickening at the lung bases. A few small peripheral groundglass densities within the right lung apex. These favor small pulmonary infarcts. IMPRESSION: 1. Right upper lobe pulmonary emboli with a few small right apical pulmonary infarcts. 2. Multinodular goiter. 3. The heart is mildly enlarged. 4. Small hiatus hernia. 5. Multinodular thyroid goiter. 2. BILATERAL LOWER EXTREMITY VENOUS DOPPLER FINDINGS: The bilateral common femoral, superficial femoral and popliteal veins were compressible. Augmentation was normal. Flow was shown within the deep calf vessels. IMPRESSION: No evidence of deep venous thrombus within the bilateral lower extremities. Consultations: 1. Hematology/Oncology Medication Reconciliation New Medications: Enoxaparin (Lovenox) 100 Mg/Ml Inj 100 MG SC DAILY for 30 Days Continued Medications: Aspirin (Aspirin Ec) 81 Mg Tab 81 MG PO DAILY Calcium Carbonate-Vitamin D W/ (Caltrate 600 Plus) 1 Tab Tab 1 TAB PO DAILY, TAB Cholecalciferol (Vitamin D3) 1,000 Unit Cap 1000 UNITS PO DAILY Coenzyme Q10 (Ubidecarenone) (Co Q 10) 100 Mg Cap 100 MG PO DAILY Iyqxgvcnuvv-Nhxrbrsbcns-Ggs C- (Glucosamine Chondroitin) 1 Cap Cap 1 CAP PO BID Metoprolol Succ (Toprol Xl) (Toprol-Xl) 25 Mg Tabcr 25 MG PO DAILY, TAB Simvastatin (Zocor) 20 Mg Tab 20 MG PO QPM, TAB Discharge Exam REVIEW OF SYSTEMS: General/Constitutional: Denies fever/chills, fatigue, weakness ENT: Denies visual changes, nasal drainage, hearing loss, sore throat, trouble swallowing Cardiovascular: Denies chest pain, palpitations, edema Respiratory: Denies cough, sputum, SOB, wheezing, orthopnea GI: Denies nausea, vomiting, abdominal pain, constipation, diarrhea, melena/ hematochezia : Denies dysuria, frequency, hematuria Musculoskeletal: +chronic back pain/ankle pain (unchanged from baseline - OA); Denies weakness, swelling Neurologic: Denies dizziness/lightheadedness, numbness/tingling, weakness Psychiatric: Deferred Endocrine: Deferred Hematologic/Lymphatic: H/O previous DVT after surgery Skin: Denies rash, itch, new skin changes, easy bruising Allergy/Immunologic: Deferred PHYSICAL EXAM:: General Appearance: WDWN in NAD who is A&O x 3 HEENT: Head is normocephalic/atraumatic; EOMI; PERRLA; Hearing grossly intact; Mucous membranes moist; Pharynx negative for exudate/lesions Neck: Supple; Trachea midline; Neg JVD; Neg lymphadenopathy Heart: RRR with no M/G/R Lungs: CTA in all lung ponce bilaterally; Respirations unlabored; Neg accessory muscle use Abdomen: Soft, non-tender, non-distended; Positive BS x 4 quadrants; Neg organomegaly Extremities: Capillary refill < 2 seconds; Neg cyanosis or edema Neurological: Speech clear; Gross motor/sensory function intact; Neg focal neurologic deficits Psychiatric: Appropriate mood/affect Skin: Normal Color; Warm/Dry; Neg rashes, ecchymosis, lacerations/ulcerations Hospital Course ADMISSION: 86 y/o F Hx CLL, HTN, HPL, DVT/PE - presents with pleuritic R upper back pain x 2 days. She denies fevers, CP, palpitations or a productive cough. A CTA was obtained in the ER revealing R upper lobe pulmonary emboli. She has not exhibited hypoxia or tachycardia. HOSPITAL COURSE: Ms. Varma was admitted for an acute pulmonary embolism likely precipitated by underlyiing CLL. During admission, she remained hemodynamically stable and without hypoxia. Venous U/S of the bilateral lower extremities without evidence of DVT. She was initiated on Lovenox 1 mg/kg BID. Consultation placed to hematology for recommendations of outpatient treatment. Per hematology recommendations, Lovenox is superior coverage with minimal research supporting use of NOACs in cancer patients. Patient with like to convert to an oral agent. The option of Coumadin was discussed however would have needed Lovenox bridging regardless. Prescription ran through insurance with affordable co-pay. Due to chronic visual issues and simplicity she was discharged home on Lovenox 100 mg SC daily. Appointment made with Dr. Ivy her oncologist for continued follow-up in regards to anticoagulation in setting of CLL. Patient with like recommendations for possible conversion to oral agents. She was instructed on proper technique for injection and performed self injection prior to discharge. Patient was continued on all home medications to include a daily aspirin. Patient is stable and without new complaints and is optimal for discharge home. Total Time Spent: Greater than 30 minutes This includes examination of the patient, discharge planning, medication reconciliation, and communication with other providers. Discharge Instructions Please refer to the electronic Patient Visit Report (Discharge Instructions) for additional information. Additional Copies To Yann Ivy M.D.; JOSE TOURE; Jose Toure M.D.
== END 2016-07-04 13:34 | disposition home or self-care (01) | DRG 176 ==
LOC: ENRESERVTM → ENRESERVDT → CANRESERV → C.EDB 23:02 → C.2T 07-02 06:00
PROVIDERS: ADMIT Internal Medicine; ATTEND Internal Medicine
DX: I26.99 Other pulmonary embolism without acute cor pulmonale (principal); C91.10 Chronic lymphocytic leukemia of B-cell type not having achieved remission; I10 Essential (primary) hypertension; E78.5 Hyperlipidemia, unspecified; M19.90 Unspecified osteoarthritis, unspecified site; M54.9 Dorsalgia, unspecified; Z79.82 Long term (current) use of aspirin; Z79.899 Other long term (current) drug therapy; Z86.718 Personal history of other venous thrombosis and embolism; Z82.49 Family history of ischemic heart disease and other diseases of the circulatory system

== ENCOUNTER → 2016-07-08 | Outpatient (CLI) | payer OTHER ==
[~2016-07-08] MED LIST: ASPI81TA28 PO; CALCTAB7 PO; CHOL1CAP57 PO; COEN1CAP17 PO; ENOX100I SC; GLUC1CAP35 PO; METO25TA3 PO; SIMV20TA2 PO
[2016-07-08 13:57] LABS: MEAN CELL VOLUME 95.2 fL (80-100); MEAN CORPUSCULAR HEMOGLOBIN 30.2 pg (25-34); MEAN CORPUSCULAR HGB CONC 31.7 g/dl (32-36); PLATELET COUNT 169 K/uL (130-400); RED BLOOD COUNT 4.41 M/uL (4.2-5.4); WHITE BLOOD COUNT 50.85 K/uL (4.8-10.8)
[2016-07-08 14:27] LABS: BASO % 0.1 %; BASO ABS # 0.06 K/uL (0-0.2); COMPLETE YES; EOS % 0.6 %; IG% 0.1 %; LYMPH % 89.9 %; MONO % 2.2 %; NEUT % 7.1 %; SMUDGE CELLS PRESENT
== END | disposition home or self-care (01) ==
LOC: C.LABMFLN 09:28
PROVIDERS: ATTEND Family Medicine
DX: I26.99 Other pulmonary embolism without acute cor pulmonale (principal)

== ENCOUNTER → 2016-08-19 | Outpatient (CLI) | payer OTHER ==
[2016-08-19 14:13] LABS: THYROID STIMULATING HORMONE 0.653 uIu/ml (0.300-4.500)
[2016-08-19 14:15] LABS: HEMATOCRIT 42.1 % (37-47); MEAN CORPUSCULAR HEMOGLOBIN 30.4 pg (25-34); MEAN CORPUSCULAR HGB CONC 32.3 g/dl (32-36); MEAN PLATELET VOLUME 12.1 fL (7.4-10.4); PLATELET COUNT 164 K/uL (130-400); RED BLOOD COUNT 4.48 M/uL (4.2-5.4); WHITE BLOOD COUNT 49.94 K/uL (4.8-10.8)
[2016-08-19 14:54] LABS: BASO % 0.2 %; BASO ABS # 0.08 K/uL (0-0.2); COMPLETE YES; EOS % 0.5 %; IG% 0.1 %; LYMPH % 91.8 %; LYMPH ABS # 45.85 K/uL (1.2-3.4); MONO % 0.1 %; NEUT % 7.3 %; SMUDGE CELLS PRESENT
== END | disposition home or self-care (01) ==
LOC: C.LABMFLN 09:56
PROVIDERS: ATTEND Family Medicine
DX: R41.3 Other amnesia (principal)

== ENCOUNTER → 2016-08-30 | Outpatient (CLI) | payer OTHER | END | disposition home or self-care (01) | LOC: C.LABMFLN 09:30 | PROVIDERS: ATTEND Family Medicine | DX: M79.1 Myalgia (principal) ==

== ENCOUNTER → 2017-04-29 | Outpatient (CLI) | payer OTHER ==
[2017-05-11 14:35] LABS: FECAL OCCULT BLOOD #1 NEGATIVE (NEGATIVE); FECAL OCCULT BLOOD #2 NEGATIVE (NEGATIVE); FECAL OCCULT BLOOD #3 NEGATIVE (NEGATIVE)
--- NOTE | 2017-06-23 08:44 | CODING QUERY NO DIAGNOSIS ---
TREATMENT RENDERED WITHOUT A DIAGNOSIS To promote full compliance with coding requirements relating to patient care, physician participation is requested in all cases of wwe wrestler uncertainty. Please assist us with providing a diagnosis/symptom for the test(s) below: A diagnosis/symptom was not documented on your Order. A valid diagnosis/symptom is required to bill all insurances. Please remember that we are unable to code a diagnosis of rule out, probable, possible, questionable, or suspected. Tests that require a diagnosis: DOS: 04/29/17 * FECAL OCCULT BLOOD PANEL DIAGNOSIS: Provider Signature: Date: Thank you Zeinab Lewis [employer] Once completed, please kindly fax back to [phone] For questions please call [phone]
== END | disposition home or self-care (01) ==
LOC: C.LABSPEC 13:12
PROVIDERS: ATTEND Family Medicine
DX: D64.9 Anemia, unspecified (principal)

== ENCOUNTER → 2017-05-11 | Outpatient (CLI) | payer OTHER ==
[2017-05-11 13:19] LABS: HEMATOCRIT 41.5 % (37-47); HEMOGLOBIN 13.5 g/dL (12.0-16.0); MEAN CELL VOLUME 93.7 fL (80-100); MEAN CORPUSCULAR HEMOGLOBIN 30.5 pg (25-34); MEAN CORPUSCULAR HGB CONC 32.5 g/dl (32-36); MEAN PLATELET VOLUME 12.2 fL (7.4-10.4); PLATELET COUNT 139 K/uL (130-400); RED CELL DISTRIBUTION WIDTH CV 13.9 % (11.5-14.5); RED CELL DISTRIBUTION WIDTH SD 47.9 fL (36.4-46.3); WHITE BLOOD COUNT 35.42 K/uL (4.8-10.8)
[2017-05-11 14:14] LABS: BASO % 0.1 %; BASO ABS # 0.04 K/uL (0-0.2); EOS % 0.4 %; EOS ABS # 0.13 K/uL (0-0.5); IG# 0.04 K/uL (0.00-0.02); LYMPH % 88.1 %; LYMPH ABS # 31.19 K/uL (1.2-3.4); MONO % 2.5 %; MONO ABS # 0.89 K/uL (0.11-0.59); NEUT % 8.8 %; NEUT ABS # 3.13 K/uL (1.4-6.5)
== END | disposition home or self-care (01) ==
LOC: C.LABMFLN 09:21
PROVIDERS: ATTEND Family Medicine
DX: E78.00 Pure hypercholesterolemia, unspecified (principal); G31.84 Mild cognitive impairment of uncertain or unknown etiology

== ENCOUNTER 2020-08-29 13:29 | Inpatient (IN) ==
--- NOTE | 2020-08-29 13:52 | Emergency Department Note ---
History of Present Illness General Chief complaint: Arm Pain Time Seen by Provider: 08/29/20 13:44 Source: patient Mode of arrival: EMS Limitations: no limitations History of Present Illness Provider complaint: Right arm pain Maximum Pain Intensity: 8 This 89-year-old female presents today by BLS ambulance, after falling today after lunch. She was using her walker and carrying a dish to the kitchen. She fell in the hallway. She thinks it was a mechanical fall. She denies any chest pain, shortness of breath, or dizziness at the time of the fall. Left hand dominant. She complains of right shoulder pain. Her daughter states that the arm looked misshapen right after the fall. Patient states that it hurts to move the arm. She denies any wrist or elbow pain. No numbness or tingling. She does have a history of previous rotator cuff injury to the shoulder, but no other additional issues. She fell last year and was thought to have a possible clavicle fracture, but it was evaluated and no fracture was identified. No other treatment. No other complaints. She has a history of progressive dementia, and her daughter states that she frequently forgets the walker and ambulates without it. Patient is coherent at this time. Home Medications Medication Instructions Recorded Confirmed Type calcium carbonate 500 mg (1,250 1 tab PO DAILY #90 tab 12/04/18 08/29/20 Rx mg)-vitamin D3 200 unit tablet wheeled walker w handbrakes and #1 ea 04/20/20 08/25/20 Rx seat acetaminophen 325 mg tablet 650 mg PO QID PRN #90 tab 06/03/20 08/29/20 Rx lovastatin 20 mg tablet 20 mg PO QPM #90 tab 06/03/20 08/29/20 Rx sulfamethoxazole 800 1 tab PO BID 5 Days #10 tab 08/28/20 08/29/20 Rx mg-trimethoprim 160 mg tablet cholecalciferol (vitamin D3) 2,000 units PO QAM 08/29/20 08/29/20 History escitalopram oxalate 10 mg PO HS 08/29/20 08/29/20 History metoprolol succinate 12.5 mg PO HS 08/29/20 08/29/20 History mirabegron 50 mg PO HS 08/29/20 08/29/20 History multivitamin 1 tab PO QAM 08/29/20 08/29/20 History nystatin 1 applic TOPICAL BID PRN 08/29/20 08/29/20 History rivaroxaban [Xarelto] 20 mg PO DAILY 08/29/20 08/29/20 History Allergies Allergy/AdvReac Type Severity Reaction Status Date / Time No Known Allergies Allergy Verified 08/29/20 14:23 Past Med/Surg History Medical History Adjustment disorder with depressed mood Benign essential hypertension Chronic low back pain Clavicle fracture CLL (chronic lymphocytic leukemia) CLL (chronic lymphocytic leukemia) Depression Falling Generalized osteoarthritis H/O blood clots Hallucination Hip osteoarthritis Hypercholesterolemia Incontinence of urine Insomnia Lung nodule < 6cm on CT Mild cognitive impairment Multiple thyroid nodules Neurologic gait dysfunction OAB (overactive bladder) Recurrent pulmonary embolism Subdural hematoma Urge incontinence of urine Urinary frequency Vitamin D deficiency Surgical History H/O hysterectomy for benign disease H/O left hemicolectomy History of hysterectomy S/P cataract extraction and insertion of intraocular lens Family History Mother Diabetes Brother Myocardial infarction Denies family history of Ovarian cancer Prostate cancer Breast cancer Colorectal cancer Social History Smoking Status: Never smoker Second Hand Exposure: No; Hx Alcohol Use: No Hx Substance Use: No Preferred Language: German Communication Ability: Effective Visual Impairment: Limited Hearing Ability: Hard of Hearing Golf Manager Required: No Beliefs That Will Affect Care: Cultural Cultural Beliefs: Mennonite marital status: / Current Living Situation: Family Current Living Situation Comment: With daughter current occupational status: retired Feels Safe at Home: Yes Childhood Exposure to Second-Hand Smoke: No Seatbelt Use: always Sunscreen Use: No Assistive Devices: Denture - Upper and Glasses Review of Systems A total of 10 systems reviewed and were otherwise negative Physical Exam Vital Signs Vital Signs - 24 hr 08/29/20 13:40 08/29/20 13:41 Temperature 36.8 C Temperature Source Oral Oral Pulse Rate 77 Respiratory Rate 16 Respiratory Effort / Characteristics Non-Labored Respiratory Depth Normal Respiratory Pattern Regular Blood Pressure 156/88 H Blood Pressure Mean 110 Blood Pressure Position Sitting Pulse Oximetry 95 Oxygen Delivery Method Room Air Sepsis Recent Fever Within 48 Hours No Sepsis New/Unexplained Change in Mental Status No Sepsis Action Taken by Nursing No Action Required General: Well-developed, elderly white female, in no acute distress. Laying on the bed. Denies any pain as long as I do not move her arm. Conversive. Alert and mildly confused. Aware she is in the ED. Skin: Warm and dry with fair turgor. No rashes. Minor excoriations on her face. No ecchymosis or erythema. The patient is not diaphoretic. No abrasions. HEENT: Normocephalic atraumatic. Eyes PERRLA, EOMI. No conjunctiva or scleral injection. Nares patent bilaterally without turbinate enlargement. No significant drainage. No epistaxis. Oropharynx without erythema or exudate. Uvula midline, oral mucosa moist. No lesions present. Heart: Heart RRR. No MGR. Peripheral pulses are 2+. Lungs: Lungs are clear to auscultation. No crackles rhonchi or wheezing. Good air movement. The patient is able to take a deep breath. Abdomen: Abdomen was inspected, auscultated, and palpated. Obese. Bowel sounds present x 4. Soft, nontender to palpation. No hepato-splenomegaly. No masses noted. Musculoskeletal: Patient has no discomfort with palpation over her cervical or thoracic spine. She has no discomfort with palpation over the left arm. There is some mild discomfort with palpation around her right elbow. Her worst pain is at the proximal humerus. She has very limited motion secondary to pain. There is crepitus palpable with gentle internal and external rotation of the shoulder. Extremes of motion were not attempted. Full range of motion of her wrist and digits. Lower extremity evaluation reveals no obvious asymmetry. She is able to lift her legs. No discomfort with logrolling of the hips or flexion of the knees. Neurologic: Gross sensation is intact across the upper and lower extremities by soft touch. Course Administered Medications Acetaminophen (Acetaminophen 500 Mg Tab) 1,000 mg PO Q8 [facility] Stop: 09/28/20 21:59 Last Admin: 08/30/20 05:19 Dose: 1,000 mg Documented by: [id number] Admin: 08/29/20 21:15 Dose: 1,000 mg Documented by: [id number] Diphenhydramine HCl (Diphenhydramine Capsule 25 Mg Cap) 25 mg PO [facility] Stop: 09/28/20 20:59 Last Admin: 08/29/20 21:15 Dose: 25 mg Documented by: [id number] Escitalopram Oxalate (Escitalopram Oxalate 10 Mg Tab) 10 mg PO HS [facility] Stop: 09/28/20 20:59 Last Admin: 08/29/20 21:15 Dose: 10 mg Documented by: [id number] Sodium Chloride (Nss 1000ml) 1,000 mls @ 100 mls/hr IV .Q10H [facility] Stop: 09/29/20 05:44 Last Admin: 08/30/20 05:48 Dose: 100 mls/hr Documented by: [id number] Lovastatin (Lovastatin 20 Mg Tab) 20 mg PO QPM [facility] Stop: 09/28/20 20:59 Last Admin: 08/29/20 21:15 Dose: 20 mg Documented by: [id number] Metoprolol Succinate (Metoprolol Succ 25mg Ext Rel Tab) 12.5 mg PO [facility] Stop: 09/28/20 20:59 Last Admin: 08/29/20 21:15 Dose: 12.5 mg Documented by: [id number] Mirabegron (Mirabegron Er 25 Mg Tab) 50 mg PO [facility] Stop: 09/28/20 20:59 Last Admin: 08/29/20 21:15 Dose: 50 mg Documented by: [id number] Rivaroxaban (Rivaroxaban 15 Mg Tab) 15 mg PO QDD [facility] Stop: 09/29/20 02:14 Last Admin: 08/30/20 03:08 Dose: 15 mg Documented by: [id number] Trimethoprim/Sulfamethoxazole (Sulfamethoxazole/Trimethoprim Ds 800/160mg Tab) 1 tab PO DAILY [facility] Stop: 09/02/20 08:59 Last Admin: 08/30/20 07:56 Dose: 1 tab Documented by: [id number] Medical Decision Making Differential Diagnosis Mechanical fall, dizziness, humeral fracture, rotator cuff injury, shoulder Medical Records Attestation: I reviewed the patient's medical records. Home Medications Current Medication List: was personally reviewed by me Laboratory Data Attestation: I reviewed the patient's lab results. CBC, chemistry panel, and Covid test were obtained today. Patient's excessive white count at 50.3 is consistent with her baseline due to CLL. Mild anemia. Potassium is elevated at 5.2. Chloride mildly elevated at 109. BUN of 29 and creatinine of 1.14. LFTs are unremarkable. Covid is negative. Result diagrams: 08/30/20 05:57 08/30/20 05:57 Lab Results 08/29/20 08/29/20 08/29/20 Range/Units 17:01 17:01 17:40 WBC 50.32 H* (4.8-10.8) K/uL RBC 3.89 L (4.2-5.4) M/uL Hgb 11.8 L (12.0-16.0) g/dL Hct 36.1 L (37-47) % MCV 92.8 (80-100) fL MCH 30.3 (25-34) pg MCHC 32.7 (32-36) g/dL RDW Std Deviation 46.1 (36.4-46.3) fL RDW Coeff of Сергей 13.7 (11.5-14.5) % Plt Count 131 (130-400) K/uL MPV 11.0 H (7.4-10.4) fL Immature Gran % (Auto) 0.5 % Neut % (Auto) 20.7 % Lymph % (Auto) 75.8 % [place] % (Auto) 2.8 % Eos % (Auto) 0.1 % Baso % (Auto) 0.1 % Neut # (Auto) 10.45 H (1.4-6.5) K/uL Lymph # (Auto) 38.13 H (1.2-3.4) K/uL [place] # (Auto) 1.43 H (0.11-0.59) K/uL Eos # (Auto) 0.03 (0-0.5) K/uL Baso # (Auto) 0.05 (0-0.2) K/uL Immature Gran # (Auto) 0.23 H (0.00-0.02) K/uL Smudge Cells Present Sodium 140 (136-145) mmol/L Potassium 5.2 H (3.5-5.1) mmol/L Chloride 109 H (98-107) mmol/L Carbon Dioxide 25 (21-32) mmol/L Anion Gap 6.0 (3-11) BUN 29 H (7-18) mg/dl Creatinine 1.14 (0.6-1.2) mg/dl Est Cr Clr Drug Dosing 28.2 ml/min Est GFR ( Amer) 49.7 ml/min Est GFR (Non-Af Amer) 42.9 ml/min BUN/Creatinine Ratio 25.2 H (10-20) Glucose 116 H (70-99) mg/dl Calcium 9.3 (8.5-10.1) mg/dl Total Bilirubin 0.3 (0.2-1) mg/dl AST 22 (15-37) U/L ALT 15 (12-78) U/L Alkaline Phosphatase 44 L (45-117) U/L Total Protein 6.2 L (6.4-8.2) gm/dl Albumin 3.2 L (3.4-5.0) gm/dl Globulin 3.0 (2.5-4.0) gm/dl Albumin/Globulin Ratio 1.1 (0.9-2) COVID-19 Eval Order Covid19 at [facility] SARS-CoV-2 (PCR) (Negative) 08/29/20 Range/Units 17:40 WBC (4.8-10.8) K/uL RBC (4.2-5.4) M/uL Hgb (12.0-16.0) g/dL Hct (37-47) % MCV (80-100) fL MCH (25-34) pg MCHC (32-36) g/dL RDW Std Deviation (36.4-46.3) fL RDW Coeff of Сергей (11.5-14.5) % Plt Count (130-400) K/uL MPV (7.4-10.4) fL Immature Gran % (Auto) % Neut % (Auto) % Lymph % (Auto) % [place] % (Auto) % Eos % (Auto) % Baso % (Auto) % Neut # (Auto) (1.4-6.5) K/uL Lymph # (Auto) (1.2-3.4) K/uL Lancaster # (Auto) (0.11-0.59) K/uL Eos # (Auto) (0-0.5) K/uL Baso # (Auto) (0-0.2) K/uL Immature Gran # (Auto) (0.00-0.02) K/uL Smudge Cells Sodium (136-145) mmol/L Potassium (3.5-5.1) mmol/L Chloride (98-107) mmol/L Carbon Dioxide (21-32) mmol/L Anion Gap (3-11) BUN (7-18) mg/dl Creatinine (0.6-1.2) mg/dl Est Cr Clr Drug Dosing ml/min Est GFR ( Amer) ml/min Est GFR (Non-Af Amer) ml/min BUN/Creatinine Ratio (10-20) Glucose (70-99) mg/dl Calcium (8.5-10.1) mg/dl Total Bilirubin (0.2-1) mg/dl AST (15-37) U/L ALT (12-78) U/L Alkaline Phosphatase (45-117) U/L Total Protein (6.4-8.2) gm/dl Albumin (3.4-5.0) gm/dl Globulin (2.5-4.0) gm/dl Albumin/Globulin Ratio (0.9-2) COVID-19 Eval Order SARS-CoV-2 (PCR) NEGATIVE (Negative) Imaging Data My Impression: Radiographic imaging obtained today of the right humerus and shoulder was reviewed by me and read by radiology. Patient has an acute displaced comminuted proximal humeral fracture. No glenoid fracture is noted. Blood Pressure Blood Pressure Disposition: elevated BP felt to be situational MDM Narrative Patient was evaluated in room C10. IV was established. Labs were obtained. Patient was offered pain medication. She declined, stating that as long as I did not move her arm, she had no pain. Radiographic imaging of the shoulder and humerus was obtained. This confirmed a proximal humeral fracture. Patient was given a sling. Because she ambulates with a walker, an ambulation trial was requested. Unfortunately due to time of day, a wheeled walker was not available trial. Patient would be unable to use a standard nonwheeled walker, and this i s not what she uses at home. She will require overnight evaluation and PT/OT eval with instruction tomorrow. Patient's daughter is apprehensive about caring for her at home. She feels overwhelmed at this time and is worried about additional falls. I think the patient would do best at a long-term facility for her own safety. Daughter is in agreement. I did have the nurse case investigator become involved in this patient's care. shelter facility placement can be made after PT/OT notes tomorrow. [facility] hospitalist service was consulted for admission. Please see that dictation for final management. Patient remained stable while in the ED. Though she is on Xarelto due to chronic PE, I do not think she requires CT scan imaging of her head, as this was a mechanical fall and she did not strike her head. There is no evidence of head trauma. Patient was seen in conjunction with Dr. Addison, who also evaluated the patient and concurred with today's diagnosis and treatment plan. Impression & Plan Closed fracture of right proximal humerus Admission to the hospitalist service for observation and likely placement tomorrow. Use of a sling to protect the humeral fracture. Gait training using a walker. She may require a wheelchair for assistance. Patient's pain remained controlled while in the department. Discharge Plan Visit Data Chief Complaint: Arm Pain ED Provider: Pollo Addison ED Midlevel Provider: Chun Trevizo Discharge Problem: Closed fracture of right proximal humerus Patient Disposition: Admitted As Inpatient Discharge Instructions Interventions: ED Discharge Assessment Last Done: 08/29/20 20:00
--- NOTE | 2020-08-29 14:53 | XRay Report ---
XR humerus RT 2V CLINICAL HISTORY: Right humeral pain status post trauma COMPARISON: None DISCUSSION: Acute displaced proximal humeral fracture. No additional fractures identified. Incidental note is made of a supracondylar process. IMPRESSION: 1. Acute displaced proximal humeral fracture 2. Incidentally noted supracondylar process ACT 112: Negative or not required by law. Electronically signed by: Axel Kendrick M.D. 08/29/2020 2:51 PM
--- NOTE | 2020-08-29 14:54 | XRay Report ---
XR shoulder RT min 2V routine CLINICAL HISTORY: Right shoulder pain status post trauma COMPARISON: None. DISCUSSION: There is an acute proximal humeral fracture with involvement of the greater tuberosity. T here is anterior displacement of the humeral shaft with respect to the humeral head. There is no disl ocation. IMPRESSION: Displaced humeral head and neck fracture. ACT 112: Negative or not required by law. Electronically signed by: Axel Kendrick M.D. 08/29/2020 2:53 PM
--- NOTE | 2020-08-29 15:29 | Emergency Department Note ---
ED Visit Note The patient was seen and examined with bubba. I agree with the history, physical and findings. Please see the note for disposition and details. .
[2020-08-29 17:32] LABS: Albumin Level 3.2 gm/dl (3.4-5.0); BUN Creatinine Ratio 25.2 (10-20); Calcium 9.3 mg/dl (8.5-10.1); Creatinine Clr Calc Pharmacy 28.2 ml/min; Est GFR (African American) 49.7 ml/min; Est GFR (Non-African American) 42.9 ml/min; Hematocrit (blood only) 36.1 % (37-47); Hemoglobin 11.8 g/dL (12.0-16.0); Mean Corpuscular Hemoglobin 30.3 pg (25-34); Mean Corpuscular Hgb Conc 32.7 g/dL (32-36); Mean Corpuscular Volume 92.8 fL (80-100); Platelet Count 131 K/uL (130-400); Potassium 5.2 mmol/L (3.5-5.1); RDW Coefficient of Variation 13.7 % (11.5-14.5); RDW Standard Deviation 46.1 fL (36.4-46.3); Red Blood Count 3.89 M/uL (4.2-5.4); White Blood Count 50.32 K/uL (4.8-10.8)
[2020-08-29 17:35] LABS: Albumin Globulin Ratio 1.1 (0.9-2); Bilirubin,Total 0.3 mg/dl (0.2-1); Total Protein 6.2 gm/dl (6.4-8.2)
[2020-08-29 18:27] LABS: Basophils # (auto) 0.05 K/uL (0-0.2); Basophils % (auto) 0.1 %; Eosinophils # (auto) 0.03 K/uL (0-0.5); Eosinophils % (auto) 0.1 %; Immature Granulocytes # (auto) 0.23 K/uL (0.00-0.02); Immature Granulocytes % (auto) 0.5 %; Lymphocytes # (auto) 38.13 K/uL (1.2-3.4); Lymphocytes % (auto) 75.8 %; Monocytes # (auto) 1.43 K/uL (0.11-0.59); Monocytes % (auto) 2.8 %; Neutrophils # (auto) 10.45 K/uL (1.4-6.5); Neutrophils % (auto) 20.7 %; Smudge Cells Present
--- NOTE | 2020-08-29 18:39 | History & Physical Report ---
Date of Service August 29, 2020 Assessment & Plan (1) Closed fracture of right proximal humerus: * Likely nonsurgical fracture * Unfortunately, patient typically uses a wheeled walker and given the fracture, she is unable to ambulate given the need for her arm to be immobilized in a sling for 6 weeks while healing. This unfortunately poses an issue with ambulationsee below * Goal is pain control. We will provide routine doses of Tylenol X6 doses and tramadol as needed * Consult orthopedics: Appreciate recommendations * Consult PT/OT * Patient is to be nonweightbearing to the right upper extremity (2) Ambulatory dysfunction: * Patient has been compulsive and noncompliant with walker which has led to multiple and recurrent falls. This is likely in part from her progressive dementia. She now has a proximal humeral fracture and is unable to use her walker for ambulation. This is posing safety concerns. Daughter claims that she is unable to care for the patient at this point. Will consult case management to help with possible placement. (3) UTI (urinary tract infection): * Previous culture data reviewed. Patient with coag negative staph species, sensitive to Bactrim. * will continue Bactrim from now * Will obtain blood cultures X2, 20 minutes apart and a lactic acid. Patient does not have any clinical evidence to suggest sepsis. Her white blood cell count is 50,000; however, this is baseline given her underlying CLL. (4) Back pain: * Will obtain imaging * Again, Tylenol and tramadol on board for pain management as needed (5) Dementia: * Progressive. Patient noted to not be on any medications. * Would consider Aricept for further progression of disease; however, will hold for now. Patient likely to develop hospital-acquired delirium given the change in her environment. Do not want to add medications and be unaware if it is hospital-acquired delirium or the medications that are causing a change in mental status. (6) Chronic anticoagulation: * Patient on chronic Xarelto therapy. * Unfortunately, she is a huge fall risk and has had multiple/recurrent falls over the past several months * Patient at greater risk for recurrent PE. * Pending negative head CT, will resume Xarelto; however, dose would need adjusted to 15 mg daily due to a creatinine clearance of 28. * Fall risk may decrease with patient being discharged to a intermediate facility for rehab. (7) Frequent falls: * See above. At present, unsafe discharge plan for home. (8) CLL (chronic lymphocytic leukemia): * Chronic. WBC count at baseline (9) Recurrent pulmonary embolism: * As stated above, pending negative head CT will continue Xarelto; however, at a decreased dose of 15 mg due to creatinine clearance of 15 (10) HTN (hypertension): * Continue metoprolol as prior to hospitalization (11) OAB (overactive bladder): * Continue Myrbetriq as prior to hospitalization (12) Depression: * Continue Lexapro as prior to hospitalization (13) Insomnia: * Daughter requesting Tylenol PM be continued during this hospital stay. Patient typically takes at home. IV Tylenol ordered. Will add Benadryl at night. Plan of care discussed with Dr. Oliveira. Further orders as warranted. History of Present Illness Chief Complaint: Fall resulting in right upper extremity pain Primary Care Provider: Jose Denise MD Mrs. 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 She presented to the ED following a ground-level fall resulting in right upper extremity pain. Patient is a vague and unreliable historian given her dementia. Her daughter is at bedside and provides most of the history. Patient resides with her daughter who is her laborer petroleum refinery. Daughter reports approximately 8-10 falls over the past 4 months 1 requiring transfer to [place] due to a subdural hematoma. She was seen by neurosurgery and conservative measures were carried out. Her Xarelto was held for 2 months. She had a follow-up CT scan that showed resolution and her Xarelto has since been resumed. Since that time, patient has been residing at home and has had frequent falls without substantial injury. Daughter claims that the patient is impulsive and forgetful/noncompliant with walker. Today, patient was carrying her plate back to the kitchen using her wheeled walker. She sustained a ground-level fall. Daughter was in the home and heard the fall but did not witness it. When daughter came into the room, patient was laying on her back with her right arm outstretched. Patient could not tell me exactly how she had fallen. Daughter claims that patient did not seem confused or to have sustained loss of consciousness. No loss of bowel or bladder function or witnessed seizure activity. Daughter reports patient has been declining over the past several months. She has had periods of increasing confusion. She has been slightly more confused over the past several days with foul-smelling urine which prompted a urine culture to be ordered by PCP. Patient has been on Bactrim for the past 2 days. There has been no reported fevers, chills, cough, shortness of breath, chest pain, palpitations, dysuria, skin lesions or rashes. Patient was brought to the ED where she was found to be hemodynamically stable. Imaging revealed a right proximally displaced humeral fracture involving the greater tuberosity. ED staff attempted to ambulate patient but patient unable to ambulate given the fact that she typically uses a walker and now has a right proximal humeral fracture. Decision was made to place patient in the hospital for further evaluation and care. Lab data has been requested. Allergies Allergy/AdvReac Type Severity Reaction Status Date / Time No Known Allergies Allergy Verified 08/29/20 14:23 Home Medications Medication Instructions Recorded Confirmed Type calcium carbonate 500 mg (1,250 1 tab PO DAILY #90 tab 12/04/18 08/29/20 Rx mg)-vitamin D3 200 unit tablet wheeled walker w handbrakes and #1 ea 04/20/20 08/25/20 Rx seat acetaminophen 325 mg tablet 650 mg PO QID PRN #90 tab 06/03/20 08/29/20 Rx lovastatin 20 mg tablet 20 mg PO QPM #90 tab 06/03/20 08/29/20 Rx sulfamethoxazole 800 1 tab PO BID 5 Days #10 tab 08/28/20 08/29/20 Rx mg-trimethoprim 160 mg tablet cholecalciferol (vitamin D3) 2,000 units PO QAM 08/29/20 08/29/20 History escitalopram oxalate 10 mg PO HS 08/29/20 08/29/20 History metoprolol succinate 12.5 mg PO HS 08/29/20 08/29/20 History mirabegron 50 mg PO HS 08/29/20 08/29/20 History multivitamin 1 tab PO QAM 08/29/20 08/29/20 History nystatin 1 applic TOPICAL BID PRN 08/29/20 08/29/20 History rivaroxaban [Xarelto] 20 mg PO DAILY 08/29/20 08/29/20 History Past Med/Surg History Medical History (Updated 08/29/20 @ 18:37 by Ann Bean PA-C) Adjustment disorder with depressed mood Benign essential hypertension Chronic low back pain Clavicle fracture CLL (chronic lymphocytic leukemia) CLL (chronic lymphocytic leukemia) Depression Falling Generalized osteoarthritis H/O blood clots Hallucination Hip osteoarthritis Hypercholesterolemia Incontinence of urine Insomnia Lung nodule < 6cm on CT Mild cognitive impairment Multiple thyroid nodules Neurologic gait dysfunction OAB (overactive bladder) Recurrent pulmonary embolism Subdural hematoma Urge incontinence of urine Urinary frequency Vitamin D deficiency Surgical History (Updated 08/29/20 @ 18:07 by Ann Bean PA-C) H/O hysterectomy for benign disease H/O left hemicolectomy History of hysterectomy S/P cataract extraction and insertion of intraocular lens Family History Mother Diabetes Brother Myocardial infarction Denies family history of Ovarian cancer Prostate cancer Breast cancer Colorectal cancer Social History (Updated 08/29/20 @ 18:11 by Ann Bean PA-C) Smoking Status: Never smoker Hx Alcohol Use: No Hx Substance Use: No Preferred Language: Frisian Visual Impairment: Limited Hearing Ability: Hard of Hearing marital status: / Current Living Situation: Family Current Living Situation Comment: lives with daughter current occupational status: retired Feels Safe at Home: Yes Childhood Exposure to Second-Hand Smoke: No Seatbelt Use: always Sunscreen Use: No Review of Systems Review of Systems: Patient is an unreliable historian given her dementia. She does complain of some mild right shoulder pain and low back pain. Denies all other symptoms including fevers, chills, headache, nasal congestion, sore throat, cough, chest pain, shortness of breath, abdominal pain, nausea, vomiting, GI/ symptomatology. Physical Exam Constitutional: Resting comfortably in her hospital bed. She does not appear to be in any acute distress. She is awake. Oriented to self and somewhat to place but unoriented to time. Somewhat oriented to situation. Eyes: PERRL, conjunctivae normal, anicteric sclerae ENMT: external ear and nose normal, oropharynx normal Neck: trachea midline, no thyromegaly Respiratory: normal respiratory effort, lungs clear to auscultation Cardiovascular: RRR, no murmur, no edema Gastrointestinal (Abdomen): normal bowel sounds, soft, nontender, no hepatosplenomegaly Musculoskeletal: Guarding her right upper extremity. She does have tenderness to palpation. Range of motion not examined given known fracture. Radial pulse intact and symmetrical bilaterally. Capillary refill +2. Limited exam of back due to inability to have patient lean forward. She does have tenderness to palpation of the lower lumbar spine. Skin: Several lesions noted on the face that are currently being addressed by dermatology Neurologic: As stated above, she is awake. She is somewhat oriented to situation. She is oriented to self. Somewhat oriented to place (realizes that she is in the hospital but unaware of what hospital she is in). On oriented to time. Otherwise cranial nerves II through XII are grossly intact. There are no focal neuro deficits. Downward Babinski Psychiatric: Pleasantly confused Results & Data Results & Data ([facility]) Vital Signs (Past 12 Hours) Vital Signs Temp Pulse Resp BP Pulse Ox 08/29/20 13:41 36.8 C 77 16 156/88 H 95 Laboratory Results Laboratory Results - last 24 hr 08/29/20 08/29/20 08/29/20 17:01 17:01 17:40 WBC 50.32 H* RBC 3.89 L Hgb 11.8 L Hct 36.1 L MCV 92.8 MCH 30.3 MCHC 32.7 RDW Std Deviation 46.1 RDW Coeff of Сергей 13.7 Plt Count 131 MPV 11.0 H Sodium 140 Potassium 5.2 H Chloride 109 H Carbon Dioxide 25 Anion Gap 6.0 BUN 29 H Creatinine 1.14 Est Cr Clr Drug Dosing 28.2 Est GFR ( Amer) 49.7 Est GFR (Non-Af Amer) 42.9 BUN/Creatinine Ratio 25.2 H Glucose 116 H Calcium 9.3 Total Bilirubin 0.3 AST 22 ALT 15 Alkaline Phosphatase 44 L Total Protein 6.2 L Albumin 3.2 L Globulin 3.0 Albumin/Globulin Ratio 1.1 COVID-19 Eval Order Covid19 at [facility] SARS-CoV-2 (PCR) 08/29/20 17:40 WBC RBC Hgb Hct MCV MCH MCHC RDW Std Deviation RDW Coeff of Сергей Plt Count MPV Sodium Potassium Chloride Carbon Dioxide Anion Gap BUN Creatinine Est Cr Clr Drug Dosing Est GFR ( Amer) Est GFR (Non-Af Amer) BUN/Creatinine Ratio Glucose Calcium Total Bilirubin AST ALT Alkaline Phosphatase Total Protein Albumin Globulin Albumin/Globulin Ratio COVID-19 Eval Order SARS-CoV-2 (PCR) Pending Urinalysis collected 08/25/2020 reviewed: Spec: [id number] Collected: 08/25/20 Received: 08/25/[address]: Jose Denise MD Source: Urine,Random OV Order: Ordered: Urine Culture Procedure Result Verified Site Urine Culture Final 08/28/20-1114 Organism 1 Coag neg staph not saprophytic [place] Count >100,000 CFU/ml Sens Sensitivities to Follow CNSns RX M.I.C. --- --------- Daptomycin S <=0.5 Nitrofurantoin S <=32 Oxacillin R >2 Tetracycline S <=4 Trimeth/Sulfa S 2/38 Vancomycin S 1 Diagnostic Findings X-ray of the right shoulder and humeral head done 08/29/2020: DISCUSSION: There is an acute proximal humeral fracture with involvement of the greater tuberosity. There is anterior displacement of the humeral shaft with respect to the humeral head. There is no dislocation. IMPRESSION: Displaced humeral head and neck fracture. 1. Acute displaced proximal humeral fracture 2. Incidentally noted supracondylar process Medications Administered None Code Status & VTE Plan Code Status Patient has an advanced directive/living will. She is DNI/DNR status. Daughter has witnissed this and will bring a copy of advanced directive. VTE Prophylaxis Plan VTE Prophylaxis will be ordered: Yes Supervising Physician Co-Signing Physician Notes PA Deb Note: I personally saw and examined the patient. I verified all benjamin points and agree with EARNEST Bean with the following exceptions and/or additions: This patient is an 89-year-old female with a history of recurrent PE on Xarelto, recurrent falls, depression, HTN, overactive bladder, hyperlipidemia, MCI, subdural hematoma, CLL, and ambulatory dysfunction who presents to the ER after having an unwitnessed fall resulting in right shoulder pain. She was found to have a right proximal humerus fracture. Otherwise, labs were fairly unremarkable except for a mild elevation in potassium at 5.2. The patient does not recall losing consciousness and the daughter saw her shortly after the fall on did not notice any seizure activity or loss of consciousness. The patient denies any headache or injuries or pain other than in her right shoulder. She was recently started on Bactrim for a UTI yesterday as per her PCP. History and ROS reviewed as above Vitals reviewed Gen: AAO to person and type of place, NAD, very pleasant HEENT: Anicteric sclerae, EOMI CV: RRR no mgr nl S1S2 Pulm: CTAB no wcr Abd: +BS soft NT ND no masses or hernias Ext: Right proximal humerus region with positive tenderness to palpation, no ecchymosis or hematoma noted, range of motion of right shoulder not tested, has full strength of right hand and is neurovascularly intact in the right upper extremity distal to the fracture Skin: No rashes, warm/dry Neuro: Full strength throughout except right upper extremity shoulder not tested Laboratory values and radiology study images personally reviewed by me 89-year-old female with history as above, here with likely mechanical fall resulting in right proximal humerus fracture. With ambulatory dysfunction -Checking CT of the head Noncon given history of subdural hematoma and unwitnessed fall in the setting of being on Xarelto-hold Xarelto for now The overnight vp medical was advised that the CT of the head was still pending and will follow up on the results and resume Xarelto if negative for hemorrhage Checking x-rays of the lumbar spine given some lower back pain and contusion Continue treating for UTI with Bactrim, repeat urinalysis does not appear infected -PT/OT consultations requested and she will need rehab placement as daughter does not feel she is able to care for her at home especially with no use of right upper extremity at this time -Place right upper extremity in sling and consult orthopedic surgery for further evaluation PG Care Time/CCT Total # of Minutes Spent Total Time Spent with Patient: Total time spent is greater than 50% in coordination of care (as documented) at patient's floor/unit and/or counseling patient:60 [place] [address] OBS Care - Level 3 Patient Type New Medical Decision Making Moderate Complexity Diagnoses Closed fracture of right proximal humerus S42.291A Encounter type: initial encounter Fracture alignment: displaced Fracture morphology: other fracture Ambulatory dysfunction R26.2 UTI (urinary tract infection) N30.00 Hematuria presence: without hematuria Urinary tract infection type: acute cystitis Back pain M54.5 Back pain laterality: midline Back pain location: low back pain Chronicity: acute Sciatica presence: without sciatica Dementia F03.90 Dementia behavioral disturbance: without behavioral disturbance Dementia type: unspecified type Chronic anticoagulation Z79.01 Frequent falls R29.6 CLL (chronic lymphocytic leukemia) C91.10 Recurrent pulmonary embolism I26.99 HTN (hypertension) I10 Hypertension type: essential hypertension OAB (overactive bladder) N32.81 Depression F32.9 Depression Type: unspecified Insomnia G47.00 Time Spent (min) 60 (1) UTI (urinary tract infection) Hematuria presence: without hematuria Urinary tract infection type: acute cystitis Qualified Code(s): N30.00 - Acute cystitis without hematuria (2) Back pain Back pain laterality: midline Back pain location: low back pain Chronicity: acute Sciatica presence: without sciatica Qualified Code(s): M54.5 - Low back pain (3) Dementia Dementia behavioral disturbance: without behavioral disturbance Dementia type: unspecified type Qualified Code(s): F03.90 - Unspecified dementia without behavioral disturbance (4) Depression Depression Type: unspecified Qualified Code(s): F32.9 - Major depressive disorder, single episode, unspecified (5) HTN (hypertension) Hypertension type: essential hypertension Qualified Code(s): I10 - Essential (primary) hypertension (6) Closed fracture of right proximal humerus Encounter type: initial encounter Fracture alignment: displaced Fracture morphology: other fracture Qualified Code(s): S42.291A - Other displaced fracture of upper end of right humerus, initial encounter for closed fracture
[2020-08-29 18:48] LABS: INR 1.3 (0.9-1.1); Prothrombin Time 13.2 Seconds (9.0-12.0)
[2020-08-29 19:00] LABS: Appearance Urine Turbid (Clear); Bacteria Urine Automated Negative (Negative); Bilirubin Urine Negative (Negative); Blood Urine Negative (Negative); Color Urine Yellow; Glucose Urine UA Negative (Negative); Ketones Urine 3+ (Negative); Leukocyte Esterase Urine Negative (Negative); Nitrite Urine Negative (Negative); Protein Urine Negative (Negative); RBC Urine Automated 0-4 /hpf (0-4); Specific Gravity Urine 1.023 (1.000-1.030); Urobilinogen Urine Negative (Negative); pH Urine 8.5 (4.5-7.5)
--- NOTE | 2020-08-29 19:46 | XRay Report ---
XR lumbar spine 2-3V CLINICAL HISTORY: Low back pain status post trauma COMPARISON STUDY: No previous studies for comparison. FINDINGS: There are moderate multilevel degenerative changes. The bones are osteopenic. No acute frac tures or traumatic subluxations are visualized. There is a grade 1 spondylolisthesis of L4 on L5. IMPRESSION: 1. Osteopenia and moderate multilevel degenerative change 2. No acute fractures or traumatic subluxations identified ACT 112: Negative or not required by law. Electronically signed by: Axel Kendrick M.D. 08/29/2020 7:44 PM
[2020-08-29] MEDS ORDERED: ONDANSETRON INJ 2 MG/ML 2 ML VIAL IV PRN (20:17)
[2020-08-29] MEDS ORDERED: ACETAMINOPHEN 325 MG TAB PO PRN (20:17)
[2020-08-29] MEDS ORDERED: ALUMINUM/MAGNESIUM SUSP 30 ML UDC PO PRN (20:17)
[2020-08-29] MEDS ORDERED: ACETAMINOPHEN 1,000 MG/100 ML VIAL IV SCH (20:17)
[2020-08-29 20:58] LABS: Albumin Level 3.2 gm/dl (3.4-5.0); Calcium 9.5 mg/dl (8.5-10.1); Creatinine Clr Calc Pharmacy 27.3 ml/min; Est GFR (African American) 47.7 ml/min; Est GFR (Non-African American) 41.1 ml/min; Potassium 4.7 mmol/L (3.5-5.1)
[2020-08-29 21:01] LABS: Albumin Globulin Ratio 1.2 (0.9-2); Bilirubin,Total 0.6 mg/dl (0.2-1); Globulin 2.7 gm/dl (2.5-4.0); Total Protein 5.9 gm/dl (6.4-8.2)
[2020-08-29] MEDS: ESCITALOPRAM OXALATE 10 MG TAB PO SCH (21:15)
[2020-08-29] MEDS: MIRABEGRON ER 25 MG TAB PO SCH (21:15)
[2020-08-29] MEDS: ACETAMINOPHEN 500 MG TAB PO SCH (21:15)
[2020-08-29] MEDS: diphenhydrAMINE Capsule 25 MG CAP PO SCH (21:15)
[2020-08-29] MEDS: METOPROLOL SUCC 25MG EXT REL TAB PO SCH (21:15)
[2020-08-29] MEDS: LOVASTATIN 20 MG TAB PO SCH (21:15)
[2020-08-29] MEDS ORDERED: ACETAMINOPHEN 500 MG TAB PO SCH (22:00)
--- NOTE | 2020-08-30 02:06 | Communication Note ---
Date of Service: August 30, 2020 Night team reviewed head CT --> negative. Restarted chronic Xarelto upon request of day-team. Discussion with pharmacy raised the following questions: If patient is on Xarelto for recurrent DVT or PE , she should be on 20mg daily dosing for at least 6 months. If we are beyond this interval, 10mg daily is recommended for the reduction in risk of recurrence of DVT and/or PE. The reduced dosing based on CrCl only applies when Xarelto is indicated for Atrial Fibrillation, which Mrs. Varma does not have. I have asked for Mrs. Varma to be given 15mg dose this evening - but I recommend the above be reviewed by day-team and/or PCP upon hospital discharge.
[2020-08-30] MEDS ORDERED: RIVAROXABAN 15 MG TAB PO SCH (02:15)
[2020-08-30] MEDS: ACETAMINOPHEN 500 MG TAB PO SCH ×3 (05:19→21:09)
[2020-08-30] MEDS ORDERED: SODIUM CHLORIDE 0.9% 1000ML 1,000 ML IV SCH (05:45)
[2020-08-30 06:45] LABS: Hematocrit (blood only) 32.2 % (37-47); Hemoglobin 10.3 g/dL (12.0-16.0); Mean Corpuscular Hemoglobin 30.2 pg (25-34); Mean Corpuscular Volume 94.4 fL (80-100); Mean Platelet Volume 11.6 fL (7.4-10.4); Platelet Count 134 K/uL (130-400); RDW Standard Deviation 47.8 fL (36.4-46.3); Red Blood Count 3.41 M/uL (4.2-5.4); White Blood Count 54.18 K/uL (4.8-10.8)
[2020-08-30 06:47] LABS: Calcium 8.8 mg/dl (8.5-10.1); Est GFR (African American) 47.2 ml/min; Est GFR (Non-African American) 40.7 ml/min; Magnesium 2.2 mg/dl (1.8-2.4); Potassium 4.4 mmol/L (3.5-5.1)
--- NOTE | 2020-08-30 07:00 | CT Scan Report ---
CT head/brain wo con CLINICAL HISTORY: Head trauma. Change in mental status COMPARISON STUDY: No previous studies for comparison. TECHNIQUE: Axial CT of the brain is performed from the vertex to the skull base. IV contrast was not administered for this examination. A dose lowering technique was utilized adhering to the principles of ALARA. CT DOSE: 537.48 mGy.cm FINDINGS: No intra or extra-axial mass lesions are visualized. There is no CT evidence of acute cortical infarc tion. There is no evidence of midline shift. There is no acute hemorrhage. No calvarial fractures ar e visualized. There are moderate white matter hypodensities likely on a small vessel basis. There is no evidence of pathologic ventricular dilatation. There is no evidence of acute sinusitis IMPRESSION: No acute intracranial findings ACT 112: Negative or not required by law. Electronically signed by: Axel Kendrick M.D. 08/30/2020 6:59 AM
[2020-08-30 07:09] LABS: Basophils # (auto) 0.07 K/uL (0-0.2); Basophils % (auto) 0.1 %; Eosinophils % (auto) 0.2 %; Immature Granulocytes # (auto) 0.12 K/uL (0.00-0.02); Immature Granulocytes % (auto) 0.2 %; Lymphocytes # (auto) 44.88 K/uL (1.2-3.4); Lymphocytes % (auto) 82.8 %; Monocytes # (auto) 1.64 K/uL (0.11-0.59); Neutrophils # (auto) 7.37 K/uL (1.4-6.5); Neutrophils % (auto) 13.7 %; Smudge Cells Present
[2020-08-30] MEDS: SULFAMETHOXAZOLE/TRIMETHOPRIM DS 800/160MG TAB PO SCH (07:56)
[2020-08-30] MEDS: traMADol HCL 50 MG TABLET PO PRN ×2 (11:18→21:08)
--- NOTE | 2020-08-30 11:37 | Hospitalist Progress Note ---
Date of Service August 30, 2020 Assessment & Plan (1) Closed fracture of right proximal humerus: * Ortho on board. CT of the RUE ordered for further assessment. If surgery required, plan is for OP (as per ortho) * Pain controlled * NWB to RUE, unable to use walker. Daughter unable to provide care. Awaiting PT/OT eval and cast mgmt to help with D/C planning. (2) Ambulatory dysfunction: * Patient has been impulsive and noncompliant with walker which has led to multiple and recurrent falls. This is likely in part from her progressive dementia. She now has a proximal humeral fracture and is unable to use her walker for ambulation. This is posing safety concerns. As stated above, will need placement. (3) UTI (urinary tract infection): * Previous culture data reviewed. Patient with coag negative staph species, sensitive to Bactrim. * FU UA is not grossly infected * will continue Bactrim from now * The final culture data pending. Blood cultures pending. Patient is afebrile. White count is elevated but has CLL (at baseline). (4) Back pain: * xray negative. controlled today (5) Dementia: * Progressive. Patient noted to not be on any medications. * Would consider Aricept for further progression of disease; however, will hold for now. Patient likely to develop hospital-acquired delirium given the change in her environment (currently no evidence of this). Do not want to add medications and be unaware if it is hospital-acquired delirium or the medications that are causing a change in mental status. (6) Chronic anticoagulation: * Patient on chronic Xarelto therapy. * Unfortunately, she is a huge fall risk and has had multiple/recurrent falls over the past several months * Patient at greater risk for recurrent PE. * CT of the head done and negative for hemorrhage. Xarelto has been resumed but at 10 mg as opposed to 20 mg. Her last PE was greater than 2 years ago and she no longer needs treatment dosing but does need continued preventative dosing due to history of recurrent PE. Currently, Ortho reports no surgical intervention required; however, CT was ordered for further assessment. If surgical intervention deemed necessary, Ortho reports can be done as an outpatient following withholding of Xarelto. We will continue for now given risk factors (including fracture which poses increased risk for PE). (7) Frequent falls: * See above. At present, unsafe discharge plan for home. (8) CLL (chronic lymphocytic leukemia): * Chronic. WBC count at baseline (9) Recurrent pulmonary embolism: * See above (10) HTN (hypertension): * Continue metoprolol as prior to hospitalization (11) OAB (overactive bladder): * Continue Myrbetriq as prior to hospitalization (12) Depression: * Continue Lexapro as prior to hospitalization Plan of care discussed with Dr. Alex. Further orders as warranted. Admission and Anticipated Discharge Date Admission Date: August 29, 2020 Subjective Patient seen on daily rounds today. Overall, her pain is adequately controlled with Tramadol. Did have 6 scheduled doses of APAP. Head CT done lastnight given fall, no acute pathology. Xarelto was initially on hold until intracranial hemorrhage ruled out. On ACT for recurrent PE- last >2 years ago per daughter. At this point, she remains on Bactrim for UTI (dx preoperatively). Repeat UA is leukocytesterase and nitrite negative. BC obtained and pending. Her lactic acid level was drawn yesterday and mildly elevated at 2.3 without s/s sepsis. Her repeat was WNL at 1.3. Patient is confused and an unreliable historian. Nursing reports no c/c. Seen by Ortho who ordered a CT of the right upper extremity to determine if surgical intervention is required. If so, this would be planned as an outpatient as patient would need to be off of her Xarelto. Review of Systems Review of Systems: Question reliability given dementia. Denies uncontrolled shoulder pain. Denies F/C, CP, SOB, abd pain, GI/Gu symptoms. Physical Exam Physical Exam: General: Sitting comfortably in chair at bedside pleasantly confused. Awake. Oriented to self but not to time, place, situation NAD. Does not appear ill or toxic Cardiac: RRR without M/G/R Lungs: CTA without W/R/R Abdomen: Normoactive X4. Soft and nontender in all quadrants. Extremities: RUE in sling. radial pulse in tact and symmetrical bilaterally. Fine motor intact. Results & Data Results & Data ([facility]) Vital Signs (Past 12 Hours) Vital Signs Temp Pulse Resp BP Pulse Ox 08/30/20 07:10 36.6 C 67 16 106/53 L 97 Laboratory Results 08/30/20 05:57 08/30/20 05:57 Urinalysis reviewed. Not grossly infected as it is nitrite and leukocyte esterase negative. Diagnostic Findings CT of the head without contrast: No intra or extra-axial mass lesions are visualized. There is no CT evidence of acute cortical infarction. There is no evidence of midline shift. There is no acute hemorrhage. No calvarial fractures are visualized. There are moderate white matter hypodensities likely on a small vessel basis. There is no evidence of pathologic ventricular dilatation. There is no evidence of acute sinusitis IMPRESSION: No acute intracranial findings X-ray of the lumbar spine: IMPRESSION: 1. Osteopenia and moderate multilevel degenerative change 2. No acute fractures or traumatic subluxations identified CT of the RUE: FINDINGS: The skeletal structures are osteopenic. Again seen is an impacted and comminuted fracture of the right humeral head and neck. There are numerous displaced fragments. The largest fragment is displaced posteriorly and measures up to 3.3 cm. There is associated hemarthrosis/joint effusion. Small bony fragments are present in the joint space. The right scapula appears intact. There is no dislocation. Mild arthritic changes seen at the glenohumeral articulation. Productive degenerative change is noted at the acromioclavicular joint. There is chronic appearing deformity of the distal right clavicle. Soft tissue edema and trace hemorrhage is present around the fracture. Large/organized hematoma is identified. No intramuscular hemorrhage is clearly seen. There is no right axillary lymphadenopathy. The imaged right lung parenchyma appears clear. IMPRESSION: Comminuted fracture of the right humeral head and neck as above. PG Care Time/CCT Total # of Minutes Spent Total Time Spent with Patient: Total time spent is greater than 50% in coordination of care (as documented) at patient's floor/unit and/or counseling patient: [place] [address] Subseq Hosp Care Lvl 2 Patient Type Established History Expanded Problem Focused Exam Expanded Problem Focused Medical Decision Making Low Complexity Diagnoses Closed fracture of right proximal humerus S42.201A Encounter type: initial encounter Fracture alignment: displaced Ambulatory dysfunction R26.2 UTI (urinary tract infection) N30.00 Urinary tract infection type: acute cystitis Hematuria presence: without hematuria Back pain M54.5 Back pain location: low back pain Chronicity: acute Back pain laterality: midline Sciatica presence: without sciatica Dementia F03.90 Dementia type: unspecified type Dementia behavioral disturbance: without behavioral disturbance Chronic anticoagulation Z79.01 Frequent falls R29.6 CLL (chronic lymphocytic leukemia) C91.10 Recurrent pulmonary embolism I26.99 HTN (hypertension) I10 Hypertension type: essential hypertension OAB (overactive bladder) N32.81 Depression F32.9 Depression Type: unspecified Time Spent (min) 45 (1) Closed fracture of right proximal humerus Encounter type: initial encounter Fracture alignment: displaced (2) UTI (urinary tract infection) Urinary tract infection type: acute cystitis Hematuria presence: without hematuria Qualified Code(s): N30.00 - Acute cystitis without hematuria (3) Back pain Back pain location: low back pain Chronicity: acute Back pain laterality: midline Sciatica presence: without sciatica Qualified Code(s): M54.5 - Low back pain (4) Dementia Dementia type: unspecified type Dementia behavioral disturbance: without behavioral disturbance Qualified Code(s): F03.90 - Unspecified dementia without behavioral disturbance (5) HTN (hypertension) Hypertension type: essential hypertension Qualified Code(s): I10 - Essential (primary) hypertension (6) Depression Depression Type: unspecified Qualified Code(s): F32.9 - Major depressive disorder, single episode, unspecified
--- NOTE | 2020-08-30 11:48 | Consultation Report ---
DATE OF CONSULTATION: 08/30/2020. CHIEF COMPLAINT: Right shoulder pain. HISTORY OF PRESENT ILLNESS: The patient is an 89-year-old female suffered a fall at home. Presented to the [facility] ED for evaluation of right upper extremity pain. X-rays revealed a right proxi mal humerus fracture. Patient's family did not feel comfortable taking her home and patient was admi tted by the medicine service. An orthopedic consult was asked for. Patient does have a significant medical history noted for ambulatory dysfunction with multiple recent falls, likely secondary to her progressive dementia and failure to use her walker on a regular basis. Also significant for urinary tract infection, chronic back pain, noted dementia, chronic anticoagulation on Xarelto for history of recurrent PE, chronic lymphocytic leukemia, hypertension, depression, insomnia. Today, patient is s itting in her chair, appears comfortable. Her right upper extremity is in a sling. She is communica tive and able to hold in appropriate conversation. Her fingers are mobile neurovascularly intact. X-rays were reviewed and shows a comminuted, displaced proximal humerus fracture. This was communica gracia to the patient. I think the only real treatment for her fracture would be surgical in nature, bu t she may have too many contraindications to surgery. She asked me to speak to her daughter, which I did. I called her daughter at [phone]. We had a nice conversation. She currently lives with her mother, but she is not sure how much longer she is going to be able to care for her. I am going to order a CT scan of the right proximal humerus. We can get a better determination of what would be necessary to fix her humerus. After this, we can have a discussion with the family and medical serv ice to determine optimal treatment. If surgery is decided along, this is something that could be don e as an outpatient. The patient will have to be off her Xarelto for several days. The patient is li eduardo to require a rehab stay and this is something that the family needs to consider long-term such a [facility] in [place] which is near their home. Dr. Carvajal will be available later to evaluate and discuss also. Job ID: [id number]
--- NOTE | 2020-08-30 11:50 | CT Scan Report ---
CT SCAN OF THE RIGHT SHOULDER WITHOUT IV CONTRAST CLINICAL HISTORY: Right humeral fracture. COMPARISON STUDY: Radiographs of the right shoulder and humerus dated 08/29/2020. TECHNIQUE: CT scan of the right shoulder is performed from the lower neck to the humeral shaft. Image s are reviewed in the axial, sagittal, and coronal planes. IV contrast was not administered for this examination. 3-D reformats are created and assessed. A dose lowering technique was utilized adhering to the principles of ALARA. CT DOSE: 242.83 mGy.cm FINDINGS: The skeletal structures are osteopenic. Again seen is an impacted and comminuted fracture o f the right humeral head and neck. There are numerous displaced fragments. The largest fragment is di splaced posteriorly and measures up to 3.3 cm. There is associated hemarthrosis/joint effusion. Small bony fragments are present in the joint space. The right scapula appears intact. There is no disloca tion. Mild arthritic changes seen at the glenohumeral articulation. Productive degenerative change is noted at the acromioclavicular joint. There is chronic appearing deformity of the distal right clavi reynaldo. Soft tissue edema and trace hemorrhage is present around the fracture. Large/organized hematoma is identified. No intramuscular hemorrhage is clearly seen. There is no right axillary lymphadenopath y. The imaged right lung parenchyma appears clear. IMPRESSION: Comminuted fracture of the right humeral head and neck as above. ACT 112: Negative or not required by law. Dictated: 08/30/2020 11:12 AM Transcribed: 08/30/2020 11:27 AM Felisha [id number] [email or web address] Electronically signed by: Jose Duval M.D. 08/30/2020 11:48 AM
[2020-08-30] MEDS ORDERED: RIVAROXABAN 10 MG TABLET PO SCH (16:30)
[2020-08-30] MEDS: METOPROLOL SUCC 25MG EXT REL TAB PO SCH (21:09)
[2020-08-30] MEDS: MIRABEGRON ER 25 MG TAB PO SCH (21:09)
[2020-08-30] MEDS: ESCITALOPRAM OXALATE 10 MG TAB PO SCH (21:10)
[2020-08-30] MEDS: diphenhydrAMINE Capsule 25 MG CAP PO SCH (21:10)
[2020-08-30] MEDS: LOVASTATIN 20 MG TAB PO SCH (21:10)
[2020-08-31] MEDS: ACETAMINOPHEN 500 MG TAB PO SCH ×3 (04:52→20:43)
[2020-08-31] MEDS: ENOXAPARIN INJ 30 MG/0.3 ML SYR SQ SCH (08:40)
[2020-08-31] MEDS: SULFAMETHOXAZOLE/TRIMETHOPRIM DS 800/160MG TAB PO SCH (08:41)
--- NOTE | 2020-08-31 11:34 | Hospitalist Progress Note ---
Date of Service August 31, 2020 Assessment & Plan (1) Closed fracture of right proximal humerus: Mrs. Varma is an 89 year old female with a history of Hypertension, Recurrent Pulmonary Emboli, Hypercholesterolemia, Subdural Hematoma, Osteoarthritis, and Dementia who was admitted for a Proximal Fracture of the Right Humerus secondary to a fall on 08/29/20 when she was using her walker and trying to carry a dish into the kitchen, and in doing so she sustained a mechanical fall. CT Scan of Right Shoulder shows a comminuted fracture of the right humeral head and neck. Pain is controlled. -- Orthopedic Surgery is following, most likely will proceed with right reversed TSA later this week. -- Continue using sling. -- Analgesics as needed. (2) Ambulatory dysfunction: Patient uses a walker to get around, but sometimes does not use in a safe m aravind. -- Reinforced the safe use of a walker, with both hands appropriately in place. (3) HTN (hypertension): -- Continue Metoprolol Succinate ER 12.5 mg daily. -- Low sodium diet. (4) Chronic anticoagulation: History of recurrent PE's. -- Typically maintained on Xarelto 20 mg daily. -- Currently on Lovenox which will be held before planned surgical procedure on 09/03/20. (5) CLL (chronic lymphocytic leukemia): WBC # is greater than 50,000. -- Not on any specific treatment currently. Admission and Anticipated Discharge Date Admission Date: August 30, 2020 Subjective Mrs. Varma is an 89 year old female with a history of Hypertension, Recurrent Pulmonary Emboli, Hypercholesterolemia, Subdural Hematoma, Osteoarthritis, and D ementia who was admitted for a Proximal Fracture of the Right Humerus secondary to a fall on 08/29/20 when she was using her walker and trying to carry a dish into the kitchen. She fell in the hallway and it was a mechanical fall. She denied any chest pain, shortness of breath, lightheadedness, or dizziness at the time of the fall. CT scan of the right shoulder show: The skeletal structures are osteopenic. Impacted and comminuted fracture of the right humeral head and neck. There are numerous displaced fragments. The largest fragment is displaced posteriorly and measures up to 3.3 cm. There is associated hemarthrosis/joint effusion. Small bony fragments are present in the joint space. The right scapula appears intact. There is no dislocation. Mild arthritic changes seen at the glenohumeral articulation. Productive degenerative change is noted at the acromioclavicular joint. There is chronic appearing deformity of the distal right clavicle. Soft tissue edema and trace hemorrhage i s present around the fracture. Large/organized hematoma is identified. No intramuscular hemorrhage is clearly seen. There is no right axillary lymphadenopathy. The imaged right lung parenchyma appears clear. IMPRESSION: -- Comminuted fracture of the right humeral head and neck as above. Orthopedic Surgery has been consulted, will likely require a right reversed TSA. Patient complains of right shoulder pain with any movement of her arm and sometimes with breathing. She denies any numbness or tingling of the right arm or hand. Review of Systems Review of Systems: All systems reviewed & are unremarkable except as noted in Subjective Physical Exam Physical Exam: GENERAL: Patient in no acute distress. HEENT: Head is atraumatic, normocephalic. EOM's intact. Facies symmetric. No perioral cyanosis. NECK: No JVD. JVP is not elevated. CHEST/LUNGS: Clear to auscultation throughout all lung ponce. No wheezes, rales, or crackles. CVS: S1 and S2 are regular without obvious murmurs, gallops, or rubs. PMI is nondisplaced. No lifts, heaves, or thrills. No abdominal aortic or renal bruits. ABDOMINAL EXAM: Bowel sounds are present. No masses, organomegaly, or tenderness. EXTREMITIES: No clubbing or cyanosis. No edema. Intact radial pulses bilaterally. Right arm is in a sling. NEUROLOGIC EXAM: Patient is awake, alert, and oriented. Answers questions appropriately. Speech is clear. Results & Data Results & Data ([facility]) Vital Signs (Past 12 Hours) Vital Signs Temp Pulse Resp BP Pulse Ox 08/31/20 07:15 36.6 C 72 20 132/64 96 Laboratory Results Laboratory Results - last 24 hr 08/29/20 18:23 25-OH Vitamin D Total 49.[address] Scan of right shoulder as described under "subjective" section. Medications Administered Medications calcium carbonate 500 mg (1,250 mg)-vitamin D3 200 unit tablet 1 tab PO DAILY #90 tab 12/04/18 [Rx Confirmed 08/29/20] wheeled walker w handbrakes and seat #1 ea 04/20/20 [Rx Confirmed 08/25/20] acetaminophen 325 mg tablet 650 mg PO QID PRN #90 tab 06/03/20 [Rx Confirmed 08/29/20] lovastatin 20 mg tablet 20 mg PO QPM #90 tab 06/03/20 [Rx Confirmed 08/29/20] sulfamethoxazole 800 mg-trimethoprim 160 mg tablet 1 tab PO BID 5 Days #10 tab 08/28/20 [Rx Confirmed 08/29/20] cholecalciferol (vitamin D3) 2,000 units PO QAM 08/29/20 [History Confirmed 08/29/20] escitalopram oxalate 10 mg PO HS 08/29/20 [History Confirmed 08/29/20] metoprolol succinate 12.5 mg PO HS 08/29/20 [History Confirmed 08/29/20] mirabegron 50 mg PO HS 08/29/20 [History Confirmed 08/29/20] multivitamin 1 tab PO QAM 08/29/20 [History Confirmed 08/29/20] nystatin 1 applic TOPICAL BID PRN 08/29/20 [History Confirmed 08/29/20] rivaroxaban [Xarelto] 20 mg PO DAILY 08/29/20 [History Confirmed 08/29/20] Home Medications Acetaminophen (Acetaminophen 325 Mg Tab) 650 mg PO QID PRN PRN Reason: pain Stop: 09/28/20 20:16 Acetaminophen (Acetaminophen 500 Mg Tab) 1,000 mg PO Q8 CARROLL Stop: 09/28/20 21:59 Last Admin: 08/31/20 04:52 Dose: 1,000 mg Documented by: Al Hydrox/Mg Hydrox/Simethicone (Aluminum/Magnesium Susp 30 Ml Udc) 30 ml PO Q6H PRN PRN Reason: Dyspepsia Stop: 09/28/20 20:16 Diphenhydramine HCl (Diphenhydramine Capsule 25 Mg Cap) 25 mg PO HS CARROLL Stop: 09/28/20 20:59 Last Admin: 08/30/20 21:10 Dose: 25 mg Documented by: Enoxaparin Sodium (Enoxaparin Inj 30 Mg/0.3 Ml Syr) 30 mg SQ QAM CARROLL Stop: 09/30/20 08:59 Last Admin: 08/31/20 08:40 Dose: 30 mg Documented by: Escitalopram Oxalate (Escitalopram Oxalate 10 Mg Tab) 10 mg PO HS CARROLL Stop: 09/28/20 20:59 Last Admin: 08/30/20 21:10 Dose: 10 mg Documented by: Lovastatin (Lovastatin 20 Mg Tab) 20 mg PO QPM CARROLL Stop: 09/28/20 20:59 Last Admin: 08/30/20 21:10 Dose: 20 mg Documented by: Metoprolol Succinate (Metoprolol Succ 25mg Ext Rel Tab) 12.5 mg PO HS CARROLL Stop: 09/28/20 20:59 Last Admin: 08/30/20 21:09 Dose: 12.5 mg Documented by: Mirabegron (Mirabegron Er 25 Mg Tab) 50 mg PO HS CARROLL Stop: 09/28/20 20:59 Last Admin: 08/30/20 21:09 Dose: 50 mg Documented by: Ondansetron HCl (Ondansetron Inj 2 Mg/Ml 2 Ml Vial) 4 mg IV Q6H PRN PRN Reason: Nausea Stop: 09/28/20 20:16 Tramadol HCl (Tramadol Hcl 50 Mg Tablet) 50 mg PO Q4H PRN PRN Reason: Pain Stop: 09/28/20 20:16 Last Admin: 08/30/20 21:08 Dose: 50 mg Documented by: Trimethoprim/Sulfamethoxazole (Sulfamethoxazole/Trimethoprim Ds 800/160mg Tab) 1 tab PO DAILY [facility] Stop: 09/02/20 08:59 Last Admin: 08/31/20 08:41 Dose: 1 tab Documented by: PG Care Time/CCT Total # of Minutes Spent Total Time Spent with Patient: Total time spent is greater than 50% in coordination of care (as documented) at patient's floor/unit and/or counseling patient:40 Coding Level of Care Code 79187 Subseq Hosp Care Lvl 3 Diagnoses Closed fracture of right proximal humerus S42.201A Encounter type: initial encounter Fracture alignment: displaced Ambulatory dysfunction R26.2 HTN (hypertension) I10 Hypertension type: essential hypertension Chronic anticoagulation Z79.01 CLL (chronic lymphocytic leukemia) C91.10 Time Spent (min) 50 (1) HTN (hypertension) Hypertension type: essential hypertension Qualified Code(s): I10 - Essential (primary) hypertension (2) Closed fracture of right proximal humerus Encounter type: initial encounter Fracture alignment: displaced
--- NOTE | 2020-08-31 13:25 | Orthopedic Progress Note ---
Date of Service August 31, 2020 Assessment & Plan (1) Closed fracture of right proximal humerus: X-rays to be reviewed by [facility] physicians. Patient currently remaining stable. Treatment would be nonoperative, versus ORIF, versus reverse total shoulder arthroplasty. If surgery performed, possibly will be done by . Await final input from [facility] team. Admission and Anticipated Discharge Date Admission Date: August 30, 2020 Supervising Physician Co-Signing Physician Notes Right proximal humerus fracture. Extensively discussed operative versus nonoperative treatment with the patient and her family today. They are deciding how they would like to proceed. Please see my consult note from today. Subjective Patient currently sitting up in bed reading a magazine. She states that the shoulder feels a little bit better today and has not been giving her as much pain as it had before. She states that she continues to use the sling and has no new complaints today. Physical Exam Physical Exam: Exam essentially unchanged. She remains neurovascularly intact. Cap refills less than 2 seconds in the fingers. Sling is in place. Mild pain on palpation of the right shoulder. Results & Data ([facility]) Vital Signs (Past 12 Hours) Vital Signs Temp Pulse Resp BP Pulse Ox 08/31/20 11:41 36.9 C 76 15 120/64 97 08/31/20 07:15 36.6 C 72 20 132/64 96 Diagnostic Findings Patient: TARSHA HADDAD Date: 08/30/20#: [id number]: [address]Acct ID:[id number]: [facility] Zip[facility] [place], [place] [address]Ygs: 89Location: 3NSex: FRoom/Bed: [id number] Phy: Lanre Alex D.O.Diagnosis: FALL WITH PROXIMAL HUMERAL FRACTURE,AMBULATORY DYSPri Phy: Jose Denise MDService Date: 08/30/20Fa Phy:Interpreting Phy: Jose Duval [facility] Phy: Jimena Oliveira MD Ordering Phy: Hitesh Rock P.A. cc: ~ CT SCAN OF THE RIGHT SHOULDER WITHOUT IV CONTRAST CLINICAL HISTORY: Right humeral fracture. COMPARISON STUDY: Radiographs of the right shoulder and humerus dated 08/29/2020. TECHNIQUE: CT scan of the right shoulder is performed from the lower neck to the humeral shaft. Images are reviewed in the axial, sagittal, and coronal planes. IV contrast was not administered for this examination. 3-D reformats are created and assessed. A dose lowering technique was utilized adhering to the principles of ALARA. CT DOSE: 242.83 mGy.cm FINDINGS: The skeletal structures are osteopenic. Again seen is an impacted and comminuted fracture of the right humeral head and neck. There are numerous displaced fragments. The largest fragment is displaced posteriorly and measures up to 3.3 cm. There is associated hemarthrosis/joint effusion. Small bony fragments are present in the joint space. The right scapula appears intact. There is no dislocation. Mild arthritic changes seen at the glenohumeral articulation. Productive degenerative change is noted at the acromioclavicular joint. There is chronic appearing deformity of the distal right clavicle. Soft tissue edema and trace hemorrhage is present around the fracture. Large/organized hematoma is identified. No intramuscular hemorrhage is clearly seen. There is no right axillary lymphadenopathy. The imaged right lung pa renchyma appears clear. IMPRESSION: Comminuted fracture of the right humeral head and neck as above. (1) Closed fracture of right proximal humerus Encounter type: initial encounter Fracture alignment: displaced
[2020-08-31] MEDS: METOPROLOL SUCC 25MG EXT REL TAB PO SCH (20:43)
[2020-08-31] MEDS: ESCITALOPRAM OXALATE 10 MG TAB PO SCH (20:43)
[2020-08-31] MEDS: diphenhydrAMINE Capsule 25 MG CAP PO SCH (20:43)
[2020-08-31] MEDS: LOVASTATIN 20 MG TAB PO SCH (20:44)
[2020-08-31] MEDS: MIRABEGRON ER 25 MG TAB PO SCH (20:44)
--- NOTE | 2020-08-31 21:35 | Orthopedic Consultation ---
Date of Consultation August 31, 2020 Assessment & Plan (1) Closed fracture of right proximal humerus: She has a significantly comminuted and displaced right proximal humerus fracture. I had a lengthy discussion with the patient and her 2 daughters today. We extensively discussed nonoperative treatment versus surgical intervention. I think the only viable surgical treatment option for her would be a reverse total shoulder arthroplasty for fracture. This would be a fairly large surgery, but I think this would give her better, more reliable shoulder function in the future. However, the patient is minimally active and really does not do many activities with her right upper extremity. We extensively discussed the pros and cons of each approach, including likely outcomes and shoulder function with operative versus nonoperative treatment. She is a frail elderly woman with significant medical problems, and I think this will be a big surgery for her. They would like to discuss amongst the family and let me know how they would like to proceed likely tomorrow. They did request an anesthesia evaluation for risk stratification for surgery. If they decide to proceed with surgery, we will plan for a reverse total shoulder arthroplasty on . Present on Admission?: Yes History of Present Illness Reason for Consultation: Right shoulder injury Attending Physician: Isai Leigh MD History of Present Illness Ms. Varma is an 89-year-old female home with a medical history consisting of leukemia, progressive dementia, and multiple previous pulmonary emboli on chronic anticoagulation who injured her right shoulder during a ground-level fall at home. She does have frequent falls at home, likely due to the progressive dementia. She lives with her daughter. She is with both her daughters today, who contribute quite a bit to her history. Both daughters share power of document review attorney for their mother. Her daughter notes that she is minimally active at this point, sleeping quite a bit and not really doing any significant activities that involve the right upper extremity on any regular basis. The patient is appropriately responsive and able to answer questions and carry on a conversation. However, she is disoriented to place and time. The patient reports that she is comfortable in her sling with minimal pain at rest, but she does not endorse more significant right shoulder pain with movements. Allergies Allergy/AdvReac Type Severity Reaction Status Date / Time No Known Allergies Allergy Verified 08/29/20 14:23 Home Medications Medication Instructions Recorded Confirmed Type calcium carbonate 500 mg (1,250 1 tab PO DAILY #90 tab 12/04/18 08/29/20 Rx mg)-vitamin D3 200 unit tablet wheeled walker w handbrakes and #1 ea 04/20/20 08/25/20 Rx seat acetaminophen 325 mg tablet 650 mg PO QID PRN #90 tab 06/03/20 08/29/20 Rx lovastatin 20 mg tablet 20 mg PO QPM #90 tab 06/03/20 08/29/20 Rx sulfamethoxazole 800 1 tab PO BID 5 Days #10 tab 08/28/20 08/29/20 Rx mg-trimethoprim 160 mg tablet cholecalciferol (vitamin D3) 2,000 units PO QAM 08/29/20 08/29/20 History escitalopram oxalate 10 mg PO HS 08/29/20 08/29/20 History metoprolol succinate 12.5 mg PO HS 08/29/20 08/29/20 History mirabegron 50 mg PO HS 08/29/20 08/29/20 History multivitamin 1 tab PO QAM 08/29/20 08/29/20 History nystatin 1 applic TOPICAL BID PRN 08/29/20 08/29/20 History rivaroxaban [Xarelto] 20 mg PO DAILY 08/29/20 08/29/20 History Patient History Medical History Adjustment disorder with depressed mood Benign essential hypertension Chronic low back pain Clavicle fracture CLL (chronic lymphocytic leukemia) CLL (chronic lymphocytic leukemia) Depression Falling Generalized osteoarthritis H/O blood clots Hallucination Hip osteoarthritis Hypercholesterolemia Incontinence of urine Insomnia Lung nodule < 6cm on CT Mild cognitive impairment Multiple thyroid nodules Neurologic gait dysfunction OAB (overactive bladder) Recurrent pulmonary embolism Subdural hematoma Urge incontinence of urine Urinary frequency Vitamin D deficiency Surgical History H/O hysterectomy for benign disease H/O left hemicolectomy History of hysterectomy S/P cataract extraction and insertion of intraocular lens Family History Mother Diabetes Brother Myocardial infarction Denies family history of Ovarian cancer Prostate cancer Breast cancer Colorectal cancer Social History Smoking Status: Never smoker Second Hand Exposure: No; Hx Alcohol Use: No Hx Substance Use: No Preferred Language: Colombian Communication Ability: Impaired Visual Impairment: Limited Hearing Ability: Hard of Hearing Manager Completions Required: No Beliefs That Will Affect Care: Cultural Cultural Beliefs: Mennonite marital status: / Current Living Situation: Family Current Living Situation Comment: With daughter current occupational status: retired Other Information That Helps Us Care for You: No Feels Safe at Home: Yes Safety Concerns: Feels Safe At This Time Childhood Exposure to Second-Hand Smoke: No Seatbelt Use: always Sunscreen Use: No Assistive Devices: Brace/Splint/Immobilizer and Glasses Physical Exam Physical Exam: Examination of the right shoulder reveals mild ecchymosis, but no gross deformity. Motor and sensory function is intact in the median, ulnar, and radial nerve distributions. Sensation is intact in the axillary distribution, but axillary motor was not tested due to her injury. Results & Data ([facility]) Vital Signs (Past 12 Hours) Vital Signs Temp Pulse Pulse Resp BP Pulse Ox 08/31/20 20:46 80 127/60 08/31/20 14:41 36.6 C 79 18 116/62 95 08/31/20 11:41 36.9 C 76 15 120/64 97 Laboratory Results WBC 54.2, H/H 10.3/32.2 Diagnostic Findings X-rays and CT scan of the right shoulder were reviewed. They show a significantly comminuted and displaced right 4-part proximal humerus fracture with separate displaced greater and lesser tuberosity fracture fragments; the articular surface appears to be a separate fragment. (1) Closed fracture of right proximal humerus Encounter type: initial encounter Fracture alignment: displaced
[2020-09-01] MEDS: ACETAMINOPHEN 500 MG TAB PO SCH ×3 (06:25→20:54)
[2020-09-01] MEDS: SULFAMETHOXAZOLE/TRIMETHOPRIM DS 800/160MG TAB PO SCH (09:36)
[2020-09-01] MEDS: ENOXAPARIN INJ 30 MG/0.3 ML SYR SQ SCH (09:37)
--- NOTE | 2020-09-01 11:26 | Hospitalist Progress Note ---
Date of Service September 01, 2020 Assessment & Plan (1) Closed fracture of right proximal humerus: Mrs. Varma is an 89 year old female with a history of Hypertension, Recurrent Pulmonary Emboli, Hypercholesterolemia, Subdural Hematoma, Osteoarthritis, and Dementia who was admitted for a Proximal Fracture of the Right Humerus secondary to a fall on 08/29/20. Patient is lying supine in her bed and complains that her shoulder is still painful -- but it is feeling less painful than yesterday. F amily is apparently still deciding whether or not they want patient to proceed with right reversed TSA. Dr. Clemens had an extensive discussion with the patient and her family members. Family will contact him with their decision. CT Scan of Right Shoulder shows a comminuted fracture of the right humeral head and neck. Her shoulder pain is controlled at this time. -- Orthopedic Surgery will likely proceed with right reversed TSA on if patient and family agree. -- Continue using sling. -- Analgesics as needed. -- Case management is following, making arrangements for placement after discharge. (2) Ambulatory dysfunction: Patient uses a walker to get around, but sometimes does not use in a safe manner. -- Reinforced the safe use of a walker, with both hands appropriately in place. (3) HTN (hypertension): -- Continue Metoprolol Succinate ER 12.5 mg daily. -- Low sodium diet. (4) Chronic anticoagulation: History of recurrent PE's. -- Typically maintained on Xarelto 20 mg daily. -- Currently on Lovenox which will be held before planned surgical procedure on 09/03/20. (5) CLL (chronic lymphocytic leukemia): WBC # is greater than 50,000. -- Not on any specific treatment currently. Admission and Anticipated Discharge Date Admission Date: August 30, 2020 Supervising Physician Co-Signing Physician Notes Attending Attestation - Chart reviewed in detail, care plan d/w EARNEST Borrego. I agree w/ the benjamin components of his documentation. Awaiting decision by family whether to pursue surgical intervention of right humerus fx. Labs/vitals remain acceptable. Urine cx from admission (08/29) negative. Additional diagnosis - CKD stage 3. Alejandro Abdi MD Subjective Mrs. Varma is lying supine in her bed and complains that her shoulder is still painful -- but it is feeling less painful than yesterday. Family is apparently still deciding whether or not they want patient to proceed with right reversed TSA. Dr. Clemens had an extensive discussion with the patient and her family members. Family will contact him with their decision. Review of Systems Review of Systems: All systems reviewed & are unremarkable except as noted in Subjective Physical Exam Physical Exam: VSS GENERAL: Patient in no acute distress. HEENT: Head is atraumatic, normocephalic. EOM's intact. Facies symmetric. No perioral cyanosis. NECK: No JVD. JVP is not elevated. CHEST/LUNGS: Clear to auscultation throughout all lung ponce. No wheezes, rales, or crackles. CVS: S1 and S2 are regular without obvious murmurs, gallops, or rubs. PMI is nondisplaced. No lifts, heaves, or thrills. No abdominal aortic or renal bruits. ABDOMINAL EXAM: Bowel sounds are present. No masses, organomegaly, or tenderness. EXTREMITIES: No clubbing or cyanosis. No edema. Intact radial pulses bilaterally. Right arm is in a sling. NEUROLOGIC EXAM: Patient is awake, alert, and oriented. Answers questions appropriately. Speech is clear. Results & Data Results & Data ([facility]) Vital Signs (Past 12 Hours) Vital Signs Temp Pulse Resp BP Pulse Ox 09/01/20 07:02 36.5 C 70 20 118/69 98 Medications Administered Medications calcium carbonate 500 mg (1,250 mg)-vitamin D3 200 unit tablet 1 tab PO DAILY #90 tab 12/04/18 [Rx Confirmed 08/29/20] wheeled walker w handbrakes and seat #1 ea 04/20/20 [Rx Confirmed 08/25/20] acetaminophen 325 mg tablet 650 mg PO QID PRN #90 tab 06/03/20 [Rx Confirmed 08/29/20] lovastatin 20 mg tablet 20 mg PO QPM #90 tab 06/03/20 [Rx Confirmed 08/29/20] sulfamethoxazole 800 mg-trimethoprim 160 mg tablet 1 tab PO BID 5 Days #10 tab 08/28/20 [Rx Confirmed 08/29/20] cholecalciferol (vitamin D3) 2,000 units PO QAM 08/29/20 [History Confirmed 08/29/20] escitalopram oxalate 10 mg PO HS 08/29/20 [History Confirmed 08/29/20] metoprolol succinate 12.5 mg PO HS 08/29/20 [History Confirmed 08/29/20] mirabegron 50 mg PO HS 08/29/20 [History Confirmed 08/29/20] multivitamin 1 tab PO QAM 08/29/20 [History Confirmed 08/29/20] nystatin 1 applic TOPICAL BID PRN 08/29/20 [History Confirmed 08/29/20] rivaroxaban [Xarelto] 20 mg PO DAILY 08/29/20 [History Confirmed 08/29/20] Home Medications Acetaminophen (Acetaminophen 325 Mg Tab) 650 mg PO QID PRN PRN Reason: pain Stop: 09/28/20 20:16 Acetaminophen (Acetaminophen 500 Mg Tab) 1,000 mg PO Q8 CARROLL Stop: 09/28/20 21:59 Last Admin: 09/01/20 06:25 Dose: 1,000 mg Documented by: Al Hydrox/Mg Hydrox/Simethicone (Aluminum/Magnesium Susp 30 Ml Udc) 30 ml PO Q6H PRN PRN Reason: Dyspepsia Stop: 09/28/20 20:16 Diphenhydramine HCl (Diphenhydramine Capsule 25 Mg Cap) 25 mg PO HS CARROLL Stop: 09/28/20 20:59 Last Admin: 08/31/20 20:43 Dose: 25 mg Documented by: Enoxaparin Sodium (Enoxaparin Inj 30 Mg/0.3 Ml Syr) 30 mg SQ QAM CARROLL Stop: 09/30/20 08:59 Last Admin: 09/01/20 09:37 Dose: 30 mg Documented by: Escitalopram Oxalate (Escitalopram Oxalate 10 Mg Tab) 10 mg PO HS CARROLL Stop: 09/28/20 20:59 Last Admin: 08/31/20 20:43 Dose: 10 mg Documented by: Lovastatin (Lovastatin 20 Mg Tab) 20 mg PO QPM CARROLL Stop: 09/28/20 20:59 Last Admin: 08/31/20 20:44 Dose: 20 mg Documented by: Metoprolol Succinate (Metoprolol Succ 25mg Ext Rel Tab) 12.5 mg PO HS CARROLL Stop: 09/28/20 20:59 Last Admin: 08/31/20 20:43 Dose: 12.5 mg Documented by: Mirabegron (Mirabegron Er 25 Mg Tab) 50 mg PO HS CARROLL Stop: 09/28/20 20:59 Last Admin: 08/31/20 20:44 Dose: 50 mg Documented by: Ondansetron HCl (Ondansetron Inj 2 Mg/Ml 2 Ml Vial) 4 mg IV Q6H PRN PRN Reason: Nausea Stop: 09/28/20 20:16 Tramadol HCl (Tramadol Hcl 50 Mg Tablet) 50 mg PO Q4H PRN PRN Reason: Pain Stop: 09/28/20 20:16 Last Admin: 08/30/20 21:08 Dose: 50 mg Documented by: Trimethoprim/Sulfamethoxazole (Sulfamethoxazole/Trimethoprim Ds 800/160mg Tab) 1 tab PO DAILY CARROLL Stop: 09/02/20 08:59 Last Admin: 09/01/20 09:36 Dose: 1 tab Documented by: PG Care Time/CCT Total # of Minutes Spent Total Time Spent with Patient: Total time spent is greater than 50% in coordination of care (as documented) at patient's floor/unit and/or counseling patient:30 Coding Level of Care Code 24492 Subseq Hosp Care Lv 3 Diagnoses Closed fracture of right proximal humerus S42.201A Encounter type: initial encounter Fracture alignment: displaced Ambulatory dysfunction R26.2 HTN (hypertension) I10 Hypertension type: essential hypertension Chronic anticoagulation Z79.01 CLL (chronic lymphocytic leukemia) C91.10 Time Spent (min) 40 (1) HTN (hypertension) Hypertension type: essential hypertension Qualified Code(s): I10 - Essential (primary) hypertension (2) Closed fracture of right proximal humerus Encounter type: initial encounter Fracture alignment: displaced
[2020-09-01] MEDS: METOPROLOL SUCC 25MG EXT REL TAB PO SCH (20:54)
[2020-09-01] MEDS: diphenhydrAMINE Capsule 25 MG CAP PO SCH (20:55)
[2020-09-01] MEDS: ESCITALOPRAM OXALATE 10 MG TAB PO SCH (20:55)
[2020-09-01] MEDS: LOVASTATIN 20 MG TAB PO SCH (20:55)
[2020-09-01] MEDS: MIRABEGRON ER 25 MG TAB PO SCH (20:55)
[2020-09-02] MEDS: ACETAMINOPHEN 500 MG TAB PO SCH ×3 (06:10→20:56)
[2020-09-02 07:25] LABS: Creatinine Clr Calc Pharmacy 35.7 ml/min; Est GFR (African American) 66.2 ml/min; Est GFR (Non-African American) 57.1 ml/min
[2020-09-02] MEDS: ENOXAPARIN INJ 30 MG/0.3 ML SYR SQ SCH (08:57)
--- NOTE | 2020-09-02 10:05 | Hospitalist Progress Note ---
Date of Service September 02, 2020 Assessment & Plan (1) Closed fracture of right proximal humerus: Mrs. Varma is an 89 year old female with a history of Hypertension, Recurrent Pulmonary Emboli, Hypercholesterolemia, Subdural Hematoma, Osteoarthritis, and Dementia who was admitted for a Proximal Fracture of the Right Humerus secondary to a fall on 08/29/20. Patient is lying supine in her bed and complains that her shoulder is still painful at times, although she denies any pain currently. P atient offers no other complaints. Physical Therapy met with the patient this morning, but patient doesn't recall that interaction at the moment. CT Scan of Right Shoulder shows a comminuted fracture of the right humeral head and neck. Her shoulder pain is controlled at this time. -- Patient's family have decided to manage her proximal humerus fracture through Non-Operative means. -- Continue using sling. -- Continue PT. -- Analgesics as needed. -- Case management is following, making arrangements for placement after discharge. We will transfer when a bed is available. (2) Ambulatory dysfunction: Patient uses a walker to get around, but sometimes does not use in a safe manner. (3) HTN (hypertension): -- Continue Metoprolol Succinate ER 12.5 mg daily. -- Low sodium diet. (4) Chronic anticoagulation: History of recurrent PE's. -- Resume Xarelto 20 mg daily. -- Stop Lovenox. (5) CLL (chronic lymphocytic leukemia): WBC # is greater than 50,000. -- Not on any specific treatment currently. Admission and Anticipated Discharge Date Admission Date: August 30, 2020 Supervising Physician Co-Signing Physician Notes Attending Attestation - Chart reviewed in detail, care plan d/w EARNEST Borrego. I agree w/ the benjamin components of his documentation. Family have declined surgical intervention of right humerus fx. Labs/vitals continue to remain acceptable. Alejandro Abdi MD Subjective Mrs. Varma is lying supine in her bed and admits that her shoulder is still painful at times, although she denies any pain currently. Patient offers no other complaints. She denies any nausea, vomiting, fever, or chills. She denies any calf pain. She denies any peripheral edema. She denies any chest pain or shortness of breath. Physical Therapy met with the patient this morning, but patient doesn't recall that interaction at the moment. Family has decided to take the non-operative route. Review of Systems Review of Systems: All systems reviewed & are unremarkable except as noted in Subjective Physical Exam Physical Exam: Vital signs are stable. GENERAL: Patient in no acute distress. HEENT: Head is atraumatic, normocephalic. EOM's intact. Facies symmetric. No perioral cyanosis. NECK: No JVD. JVP is not elevated. CHEST/LUNGS: Clear to auscultation throughout all lung ponce. No wheezes, rales, or crackles. CVS: S1 and S2 are regular without obvious murmurs, gallops, or rubs. PMI is nondisplaced. No lifts, heaves, or thrills. No abdominal aortic or renal bruits. ABDOMINAL EXAM: Bowel sounds are present. No masses, organomegaly, or tenderness. EXTREMITIES: No clubbing or cyanosis. No edema. Intact radial pulses bilaterally. Right arm is in a sling. Calves are soft, non-tender. NEUROLOGIC EXAM: Patient is awake, alert, and oriented. Answers questions appropriately. Speech is clear. Results & Data Results & Data ([facility]) Vital Signs (Past 12 Hours) Vital Signs Temp Pulse Resp BP Pulse Ox 09/02/20 07:19 36.4 C L 74 16 124/62 98 Laboratory Results Laboratory Results - last 24 hr 09/02/20 06:23 Creatinine 0.90 Est Cr Clr Drug Dosing 35.7 Est GFR ( Amer) 66.2 Est GFR (Non-Af Amer) 57.1 Medications Administered Medications calcium carbonate 500 mg (1,250 mg)-vitamin D3 200 unit tablet 1 tab PO DAILY #90 tab 12/04/18 [Rx Confirmed 08/29/20] wheeled walker w handbrakes and seat #1 ea 04/20/20 [Rx Confirmed 08/25/20] acetaminophen 325 mg tablet 650 mg PO QID PRN #90 tab 06/03/20 [Rx Confirmed 08/29/20] lovastatin 20 mg tablet 20 mg PO QPM #90 tab 06/03/20 [Rx Confirmed 08/29/20] sulfamethoxazole 800 mg-trimethoprim 160 mg tablet 1 tab PO BID 5 Days #10 tab 08/28/20 [Rx Confirmed 08/29/20] cholecalciferol (vitamin D3) 2,000 units PO QAM 08/29/20 [History Confirmed 08/29/20] escitalopram oxalate 10 mg PO HS 08/29/20 [History Confirmed 08/29/20] metoprolol succinate 12.5 mg PO HS 08/29/20 [History Confirmed 08/29/20] mirabegron 50 mg PO HS 08/29/20 [History Confirmed 08/29/20] multivitamin 1 tab PO QAM 08/29/20 [History Confirmed 08/29/20] nystatin 1 applic TOPICAL BID PRN 08/29/20 [History Confirmed 08/29/20] rivaroxaban [Xarelto] 20 mg PO DAILY 08/29/20 [History Confirmed 08/29/20] Home Medications Acetaminophen (Acetaminophen 325 Mg Tab) 650 mg PO QID PRN PRN Reason: pain Stop: 09/28/20 20:16 Acetaminophen (Acetaminophen 500 Mg Tab) 1,000 mg PO Q8 CARROLL Stop: 09/28/20 21:59 Last Admin: 09/02/20 06:10 Dose: 1,000 mg Documented by: Al Hydrox/Mg Hydrox/Simethicone (Aluminum/Magnesium Susp 30 Ml Udc) 30 ml PO Q6H PRN PRN Reason: Dyspepsia Stop: 09/28/20 20:16 Diphenhydramine HCl (Diphenhydramine Capsule 25 Mg Cap) 25 mg PO HS CARROLL Stop: 09/28/20 20:59 Last Admin: 09/01/20 20:55 Dose: 25 mg Documented by: Enoxaparin Sodium (Enoxaparin Inj 30 Mg/0.3 Ml Syr) 30 mg SQ QAM CARROLL Stop: 09/30/20 08:59 Last Admin: 09/02/20 08:57 Dose: 30 mg Documented by: Escitalopram Oxalate (Escitalopram Oxalate 10 Mg Tab) 10 mg PO HS CARROLL Stop: 09/28/20 20:59 Last Admin: 09/01/20 20:55 Dose: 10 mg Documented by: Lovastatin (Lovastatin 20 Mg Tab) 20 mg PO QPM CARROLL Stop: 09/28/20 20:59 Last Admin: 09/01/20 20:55 Dose: 20 mg Documented by: Metoprolol Succinate (Metoprolol Succ 25mg Ext Rel Tab) 12.5 mg PO HS CARROLL Stop: 09/28/20 20:59 Last Admin: 09/01/20 20:54 Dose: 12.5 mg Documented by: Mirabegron (Mirabegron Er 25 Mg Tab) 50 mg PO HS CARROLL Stop: 09/28/20 20:59 Last Admin: 09/01/20 20:55 Dose: 50 mg Documented by: Ondansetron HCl (Ondansetron Inj 2 Mg/Ml 2 Ml Vial) 4 mg IV Q6H PRN PRN Reason: Nausea Stop: 09/28/20 20:16 Tramadol HCl (Tramadol Hcl 50 Mg Tablet) 50 mg PO Q4H PRN PRN Reason: Pain Stop: 09/28/20 20:16 Last Admin: 08/30/20 21:08 Dose: 50 mg Documented by: PG Care Time/CCT Total # of Minutes Spent Total Time Spent with Patient: Total time spent is greater than 50% in coordinat ion of care (as documented) at patient's floor/unit and/or counseling patient:20 Coding Level of Care Code 59764 Subseq Hosp Care Lvl 2 Diagnoses Closed fracture of right proximal humerus S42.201A Encounter type: initial encounter Fracture alignment: displaced Ambulatory dysfunction R26.2 HTN (hypertension) I10 Hypertension type: essential hypertension Chronic anticoagulation Z79.01 CLL (chronic lymphocytic leukemia) C91.10 (1) HTN (hypertension) Hypertension type: essential hypertension Qualified Code(s): I10 - Essential (primary) hypertension (2) Closed fracture of right proximal humerus Encounter type: initial encounter Fracture alignment: displaced
--- NOTE | 2020-09-02 17:13 | Communication Note ---
Date of Service: September 02, 2020 I discussed the patient's case with nursing staff this morning. She stated that the family has chosen to proceed with nonoperative event of the patient's p roximal humerus fracture. Plan to continue sling at all times. Minimize range of motion of the right shoulder. Sling can be loosened to do elbow and wrist exercises. Continue ice to right shoulder. Follow-up with Dr. Clemens in 10 to 14 days.
[2020-09-02] MEDS: traMADol HCL 50 MG TABLET PO PRN (19:25)
[2020-09-02] MEDS: ESCITALOPRAM OXALATE 10 MG TAB PO SCH (20:55)
[2020-09-02] MEDS: LOVASTATIN 20 MG TAB PO SCH (20:55)
[2020-09-02] MEDS: MIRABEGRON ER 25 MG TAB PO SCH (20:55)
[2020-09-02] MEDS: diphenhydrAMINE Capsule 25 MG CAP PO SCH (20:56)
[2020-09-02] MEDS: METOPROLOL SUCC 25MG EXT REL TAB PO SCH (20:56)
[2020-09-03] MEDS: ACETAMINOPHEN 500 MG TAB PO SCH ×2 (06:17→14:59)
--- NOTE | 2020-09-03 14:08 | Discharge Summary ---
Date of Service September 03, 2020 Admission HPI Per Admitting Provider Mrs. 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 She presented to the ED following a ground-level fall resulting in right upper extremity pain. Patient is a vague and unreliable historian given her dementia. Her daughter is at bedside and provides most of the history. Patient resides with her daughter who is her shafting cleaner. Daughter reports approximately 8-10 falls over the past 4 months 1 requiring transfer to [place] due to a subdural hematoma. She was seen by neurosurgery and conservative measures were carried out. Her Xarelto was held for 2 months. She had a follow-up CT scan that showed resolution and her Xarelto has since been resumed. Since that time, patient has been residing at home and has had frequent falls without substantial injury. Daughter claims that the patient is impulsive and forgetful/noncompliant with walker. Today, patient was carrying her plate back to the kitchen using her wheeled walker. She sustained a ground-level fall. Daughter was in the home and heard the fall but did not witness it. When daughter came into the room, patient was laying on her back with her right arm outstretched. Patient could not tell me exactly how she had fallen. Daughter claims that patient did not seem confused or to have sustained loss of consciousness. No loss of bowel or bladder function or witnessed seizure activity. Daughter reports patient has been declining over the past several months. She has had periods of increasing confusion. She has been slightly more confused over the past several days with foul-smelling urine which prompted a urine culture to be ordered by PCP. Patient has been on Bactrim for the past 2 days. There has been no reported fevers, chills, cough, shortness of breath, chest pain, palpitations, dysuria, skin lesions or rashes. Patient was brought to the ED where she was found to be hemodynamically stable. Imaging revealed a right proximally displaced humeral fracture involving the greater tuberosity. ED staff attempted to ambulate patient but patient unable to ambulate given the fact that she typically uses a walker and now has a right proximal humeral fracture. Decision was made to place patient in the hospital for further evaluation and care. Lab data has been requested. Principal Diagnosis Closed Right humeral fracture Discharge Exam GENERAL: Patient in no acute distress. HEENT: Head is atraumatic, normocephalic. EOM's intact. Facies symmetric. No perioral cyanosis. NECK: No JVD. JVP is not elevated. CHEST/LUNGS: Clear to auscultation throughout all lung ponce. No wheezes, ral es, or crackles. CVS: S1 and S2 are regular without obvious murmurs, gallops, or rubs. PMI is nondisplaced. No lifts, heaves, or thrills. No abdominal aortic or renal bruits. ABDOMINAL EXAM: Bowel sounds are present. No masses, organomegaly, or tenderness. EXTREMITIES: No clubbing or cyanosis. No edema. Intact radial pulses bilaterally. Right arm is in a sling. Calves are soft, non-tender. NEUROLOGIC EXAM: Patient is awake, alert, and oriented. Answers questions appropriately. Speech is clear. Discharge Data Allergies Allergy/AdvReac Type Severity Reaction Status Date / Time No Known Allergies Allergy Verified 08/29/20 14:23 Consultations 08/29/20 16:39 ED Decision to Admit Stat 08/29/20 20:17 Consult Orthopedic Surgery Routine Ordered Studies 08/29/20 17:53 CT head/brain wo con Urgent 08/30/20 09:02 CT shoulder RT wo con Routine Hospital Course (1) Closed fracture of right proximal humerus: * Ortho on board. CT of the RUE ordered for further assessment. If surgery required, plan is for OP (as per ortho) * * Appreciate input from Ortho: * I discussed the patient's case with nursing staff this morning. She stated that the family has chosen to proceed with nonoperative event of the patient's proximal humerus fracture. Plan to continue sling at all times. Minimize range of motion of the right shoulder. Sling can be loosened to do elbow and wrist exercises. Continue ice to right shoulder. Follow-up with Dr. Clemens in 10 to 14 days. (2) Ambulatory dysfunction: * Patient has been impulsive and noncompliant with walker which has led to multiple and recurrent falls. This is likely in part from her progressive dementia. She now has a proximal humeral fracture and is unable to use her walker for ambulation. This is posing safety concerns. As stated above, will need placement. (3) HTN (hypertension): * Continue metoprolol as prior to hospitalization (4) Chronic anticoagulation: * Patient on chronic Xarelto therapy. * Unfortunately, she is a huge fall risk and has had multiple/recurrent falls over the past several months * Patient at greater risk for recurrent PE. * CT of the head done and negative for hemorrhage. Xarelto has been resumed but at 10 mg as opposed to 20 mg. Her last PE was greater than 2 years ago and she no longer needs treatment dosing but does need continued preventative dosing due to history of recurrent PE. Currently, Ortho reports no surgical intervention required; however, CT was ordered for further assessment. If surgical intervention deemed necessary, Ortho reports can be done as an outpatient following withholding of Xarelto. We will continue for now given risk factors (including fracture which poses increased risk for PE). (5) CLL (chronic lymphocytic leukemia): * Chronic. WBC count at baseline Total Time Total Time Spent Total Time Spent (In Minutes): 32 Discharge Plan Discharge Items Patient Disposition: Transfer Nursing Home Fac Reason For Visit: FALL WITH PROXIMAL HUMERAL FRACTURE,AMBULATORY DYS Discharge Diagnosis: Fall with proximal humeral fracture, ambulatory dys Activity: Resume your previous activity Non-emergency contact: Primary Care Provider Call non-emergency contact if: you have any medication questions Follow-up/Referrals: Jose Denise MD [Primary Care Provider] - Diet: Heart Healthy Addtl Attending Provider Instructions: family has chosen to proceed with nonoperative event of the patient's proximal humerus fracture. Plan to continue sling at all times. Minimize range of motion of the right shoulder. Sling can be loosened to do elbow and wrist exercises. Continue ice to right shoulder. Follow-up with Dr. Clemens in 10 to 14 days. Pending Studies at Discharge: No Stand-Alone Forms: [employer], Smoking Cessation Skilled Items Patient informed of condition?: Yes DNR: Yes Discharge Level of Care: Skilled Communicable Disease: Yes Discharge Prognosis: Stable Lines: None Urinary Catheter: No Medications and DC Order Prescriptions: New acetaminophen 500 mg Tablet 1,000 mg PO Q8 Qty: 30 RF: 0 tramadol 50 mg Tablet 50 mg PO Q4H PRN (Reason: severe pain (scale score 7-10)) Qty: 20 RF: 0 Continued acetaminophen 325 mg tablet 650 mg PO QID PRN (Reason: pain) Qty: 90 RF: 0 lovastatin 20 mg tablet 20 mg PO QPM Qty: 90 RF: 3 calcium carbonate-vitamin D3 [Calcium 500 + D] 500 mg(1,250mg) -200 unit tablet 1 tab PO DAILY Qty: 90 RF: 3 (DME) wheeled walker w handbrakes and seat See Rx Instructions .Route .MEDSUPPLY Qty: 1 RF: 0 Xarelto 20 mg tablet 20 mg PO DAILY RF: 0 multivitamin Tablet 1 tab PO QAM RF: 0 metoprolol succinate 25 mg tablet extended release 24 hr 12.5 mg PO HS RF: 0 nystatin 100,000 unit/gram powder 1 applic topical BID PRN (Reason: .) RF: 0 cholecalciferol (vitamin D3) 1,000 unit capsule 2,000 units PO QAM RF: 0 escitalopram oxalate 10 mg tablet 10 mg PO HS RF: 0 mirabegron 50 mg tablet extended release 24 hr 50 mg PO HS RF: 0 Discontinued sulfamethoxazole-trimethoprim [Bactrim DS] 800-160 mg tablet 1 tab PO BID 5 Days Qty: 10 RF: 0 Discharge Orders: Discharge Order (Routine); Ordered 09/03/20 Ordered By: Jaquan Austin Admission Data Admit Date/Time: 08/30/20 10:50 Attending Provider: Jaquan Austin Admit Provider: Jimena Oliveira Primary Care Provider: Jose Denise Other Providers: Armen Carvajal ; Lanre Alex ; Dany Davis Other Interventions: Discharge Summary Assessment (RN) Last Done: 09/03/20 13:14 Coding Level of Care Code D/C Day Management >30 mins Diagnoses Closed fracture of right proximal humerus S42.201A Encounter type: initial encounter Fracture alignment: displaced Ambulatory dysfunction R26.2 HTN (hypertension) I10 Hypertension type: essential hypertension Chronic anticoagulation Z79.01 CLL (chronic lymphocytic leukemia) C91.10 Time Spent (min) 32
[2020-09-03] MEDS ORDERED: RIVAROXABAN 20 MG TAB PO SCH (16:30)
== END 2020-09-03 16:36 | DRG 563 ==
LOC: 3N 13:29 → ED 13:29 → SUATTDRO 17:53 → 3N 20:00 → SUATTDRO 08-30 10:50